=== PATIENT | female | born 1995 | race Caucasian/White ===

== ENCOUNTER 2017-08-14 23:55 | Emergency (ER) | payer OTHER ==
[2017-08-15] VITALS: TEMP 98.2
[2017-08-15 00:23] LABS: Appearance,Urine Clear (Clear); Bilirubin,Urine Negative (Negative); Blood,Urine Negative (Negative); Color,Urine Light Yellow; Glucose,Urine (UA) Negative (Negative); Ketones,Urine 1+ (Negative); Leukocyte Esterase,Urine Negative (Negative); Mucus,Urine Rare /hpf; Nitrite,Urine Negative (Negative); PH, Urine 7.5 (5.0-8.0); Protein,Urine Negative (Negative); RBC,Urine 1 /hpf (0-5); Specific Gravity,Urine 1.006 (1.001-1.035); Urobilinogen,Urine <2.0 mg/dL (<2.0); WBC,Urine 1 /hpf (0-5)
[2017-08-15 00:32] LABS: HCT 36.3 % (34.0-46.0); MCH 29.3 pg (25.0-35.0); MCV 88.9 fL (80.0-100.0); Mean Platelet Volume 6.8; Platelet Count 292 k/uL (150-450); RBC 4.09 m/uL (3.80-5.40); RDW 12.1 % (11.5-15.5); WBC 9.6 k/uL (4.0-11.0)
[2017-08-15 00:42] LABS: Anion Gap 9 mmol/L; Blood Urea Nitrogen 8 mg/dL (7-17); Calcium 9.6 mg/dL (8.4-10.2); Carbon Dioxide 23 mmol/L (22-30); Chloride 107 mmol/L (98-107); Glucose 95 mg/dL (74-99); Potassium 3.9 mmol/L (3.5-5.1); Sodium 139 mmol/L (137-145)
--- NOTE | 2017-08-15 00:53 | ED ---
Female Urogenital HPI - General Chief complaint: Vaginal Bleeding Stated complaint: vag bleeding Time Seen by Provider: 08/15/17 00:07 Source: patient, RN notes reviewed Mode of arrival: ambulatory Limitations: no limitations - History of Present Illness Initial comments: 22-year-old female presents emergency Department chief complaint of vaginal bleeding. Patient states that she's had some spotting for last 3 weeks and did not think much of it though she had an episode where she passed o'clock today. She states she did have some cramping right before this. She states 2:00 she was concerned and came the emergency department. Patient has had a prior miscarriage. Patient states she does not know she is or not she states that she may be she has not been taking . She does admit to some nausea and the morning and at night she seems stated reoccurs every time. She denies any abdominal pain this time. Denies diarrhea, constipation, dysuria or urinary frequency. Denies fever, chills. Last Menstrual Period: 07/23/17 - Related Data Home Medications Medication Instructions Recorded Confirmed No Known Home Medications [No 08/15/17 08/15/17 Known Home Medications] Allergies Allergy/AdvReac Type Severity Reaction Status Date / Time No Known Allergies Allergy Verified 08/15/17 00:01 Review of Systems ROS Statement: Those systems with pertinent positive or pertinent negative responses have been documented in the HPI. ROS Other: All systems not noted in ROS Statement are negative. Past Medical History Past Medical History: Asthma History of Any Multi-Drug Resistant Organisms: None Reported Past Surgical History: Hernia Repair Past Psychological History: Anxiety, Depression Smoking Status: Current every day smoker Past Alcohol Use History: None Reported Past Drug Use History: Marijuana General Exam Limitations: no limitations General appearance: alert, in no apparent distress Head exam: Present: atraumatic, normocephalic, normal inspection Respiratory exam: Present: normal lung sounds bilaterally. Absent: respiratory distress, wheezes, rales, rhonchi, stridor Cardiovascular Exam: Present: regular rate, normal rhythm, normal heart sounds. Absent: systolic murmur, diastolic murmur, rubs, gallop, clicks GI/Abdominal exam: Present: soft, normal bowel sounds. Absent: distended, tenderness, guarding, rebound, rigid Back exam: Absent: CVA tenderness (R), CVA tenderness (L) Skin exam: Present: warm, dry, intact, normal color. Absent: rash Course Vital Signs 08/14/17 23:58 Temperature 98.2 F Pulse Rate 112 H Respiratory 16 Rate Blood Pressure 119/60 O2 Sat by Pulse 99 Oximetry Medical Decision Making - Medical Decision Making 22-year-old female presented for vaginal spotting, potassium blood clot today. Patient was found to be positive on her test ultrasound shows conservative fluid collection and her hCG level is greater than 225,000. Dr. Reece Did discuss the case with on-call S[facility] REPAIRER doctor adry who believes this is most likely a molar . Patient will follow-up in office tomorrow for further treatment. - Lab Data Result diagrams: 08/15/17 00:21 08/15/17 00:21 Lab Results 08/15/17 08/15/17 08/15/17 Range/Units 00:05 00:05 00:21 WBC (4.0-11.0) k/uL RBC (3.80-5.40) m/uL Hgb (11.4-16.0) gm/dL Hct (34.0-46.0) % MCV (80.0-100.0) fL MCH (25.0-35.0) pg MCHC (31.0-37.0) g/dL RDW (11.5-15.5) % Plt Count (150-450) k/uL Neutrophils % (Manual) % Lymphocytes % (Manual) % Monocytes % (Manual) % Eosinophils % (Manual) % Neutrophils # (Manual) (1.3-7.7) k/uL Lymphocytes # (Manual) (1.0-4.8) k/uL Monocytes # (Manual) (0-1.0) k/uL Eosinophils # (Manual) (0-0.7) k/uL Nucleated RBCs (0-0) /100 WBC Manual Slide Review Sodium 139 (137-145) mmol/L Potassium 3.9 (3.5-5.1) mmol/L Chloride 107 (98-107) mmol/L Carbon Dioxide 23 (22-30) mmol/L Anion Gap 9 mmol/L BUN 8 (7-17) mg/dL Creatinine 0.50 L (0.52-1.04) mg/dL Est GFR (MDRD) Af Amer >60 (>60 ml/min/1.73 sqM) Est GFR (MDRD) Non-Af >60 (>60 ml/min/1.73 sqM) Glucose 95 (74-99) mg/dL Calcium 9.6 (8.4-10.2) mg/dL HCG, Quant mIU/mL Urine Color Light Yellow Urine Appearance Clear (Clear) Urine pH 7.5 (5.0-8.0) Ur Specific [place] 1.006 (1.001-1.035) Urine Protein Negative (Negative) Urine Glucose (UA) Negative (Negative) Urine Ketones 1+ H (Negative) Urine Blood Negative (Negative) Urine Nitrite Negative (Negative) Urine Bilirubin Negative (Negative) Urine Urobilinogen <2.0 (<2.0) mg/dL Ur Leukocyte Esterase Negative (Negative) Urine RBC 1 (0-5) /hpf Urine WBC 1 (0-5) /hpf Urine Mucus Rare H (None) /hpf Urine HCG, Qual Detected (Not Detectd) 08/15/17 08/15/17 Range/Units 00:21 00:21 WBC 9.6 (4.0-11.0) k/uL RBC 4.09 (3.80-5.40) m/uL Hgb 12.0 (11.4-16.0) gm/dL Hct 36.3 (34.0-46.0) % MCV 88.9 (80.0-100.0) fL MCH 29.3 (25.0-35.0) pg MCHC 33.0 (31.0-37.0) g/dL RDW 12.1 (11.5-15.5) % Plt Count 292 (150-450) k/uL Neutrophils % (Manual) 63 % Lymphocytes % (Manual) 27 % Monocytes % (Manual) 9 % Eosinophils % (Manual) 1 % Neutrophils # (Manual) 6.05 (1.3-7.7) k/uL Lymphocytes # (Manual) 2.59 (1.0-4.8) k/uL Monocytes # (Manual) 0.86 (0-1.0) k/uL Eosinophils # (Manual) 0.10 (0-0.7) k/uL Nucleated RBCs 0 (0-0) /100 WBC Manual Slide Review Performed Sodium (137-145) mmol/L Potassium (3.5-5.1) mmol/L Chloride (98-107) mmol/L Carbon Dioxide (22-30) mmol/L Anion Gap mmol/L BUN (7-17) mg/dL Creatinine (0.52-1.04) mg/dL Est GFR (MDRD) Af Amer (>60 ml/min/1.73 sqM) Est GFR (MDRD) Non-Af (>60 ml/min/1.73 sqM) Glucose (74-99) mg/dL Calcium (8.4-10.2) mg/dL HCG, Quant >324541.0 mIU/mL Urine Color Urine Appearance (Clear) Urine pH (5.0-8.0) Ur Specific [place] (1.001-1.035) Urine Protein (Negative) Urine Glucose (UA) (Negative) Urine Ketones (Negative) Urine Blood (Negative) Urine Nitrite (Negative) Urine Bilirubin (Negative) Urine Urobilinogen (<2.0) mg/dL Ur Leukocyte Esterase (Negative) Urine RBC (0-5) /hpf Urine WBC (0-5) /hpf Urine Mucus (None) /hpf Urine HCG, Qual (Not Detectd) Disposition Clinical Impression: Molar Disposition: HOME SELF-CARE Condition: Stable Instructions: Complete Hydatidiform Mole (ED) Additional Instructions: Call in the a.m. to schedule appointment with [facility] REPAIR[facility]. Please return to the Emergency Department if symptoms worsen or any other concerns. Referrals: None,Stated [Primary Care Provider] - 1-2 days Bianca Gilman DO [Doctor of Osteopathic Medicine] - 1-2 days Time of Disposition: 02:54
[2017-08-15 01:05] LABS: Lymphocytes # (M) 2.59 k/uL (1.0-4.8); Monocytes # (M) 0.86 k/uL (0-1.0); Neutrophils # (M) 6.05 k/uL (1.3-7.7); Neutrophils % (M) 63 %; Nucleated Red Blood Cells 0 /100 WBC (0-0); Total Cells Counted 100
--- NOTE | 2017-08-15 01:27 | US ---
EXAMINATION TYPE: US OB <=14 wks transvag DATE OF EXAM: 08/15/2017 COMPARISON: NONE CLINICAL HISTORY: Pain. Bleeding EXAM PERFORMED: Transvaginal (TV) and Transabdominal (TA) EXAM MEASUREMENTS: GESTATIONAL AGE / DATING Physician Established: Not yet established Dates by LMP: LMP unknown Dates by First Scan: (8 weeks/4 days) Dates by Current Scan for: Unable to date by today's study MATERNAL ANATOMY Uterus: 9.9 x 6.1 x 8.0 Right Ovary: 2.8 x 1.6 x 1.9 cm Post CDS / Adnexa: wnl Presence of free fluid: no Presence of corpus luteal cyst: no GESTATION / SURVEY CRL: Not seen MSD: Not seen IUP: No IUP seen at this time Beta HcG (if available): Not available at this time Complex heterogenous area seen with small amount of color flow in uterus question thickened endometri um 4.6cm vs mass measuring 7.7 x 5.2 x 6.2cm. IMPRESSION: There is heterogeneous enlargement of the endometrial cavity. There is complex fluid. This measures 3 .5 x 5.5 cm. There is no evidence of a gestational sac. The appearance is nonspecific. I would consid er both benign and neoplastic etiology. This could relate to endometrial hemorrhage. Follow-up is rec ommended. No adnexal mass.
[2017-08-15 03:06] VITALS: BP 102/51; PULSE 89; RESP 18
== END 2017-08-15 03:06 | disposition home or self-care (01) ==
LOC: EC 23:55
DX: O02.0 Blighted ovum and nonhydatidiform mole (principal); O99.330 Smoking (tobacco) complicating pregnancy, unspecified trimester; F17.200 Nicotine dependence, unspecified, uncomplicated; Z3A.00 Weeks of gestation of pregnancy not specified
CPT/HCPCS: 36415; 76801; 76817; 80048; 81003; 81025; 84702; 85025; 99284

== ENCOUNTER 2017-08-18 14:45 | Day surgery (SDC) | payer OTHER ==
[~2017-08-18 14:45] MED LIST: Pre Op ABX Message 1 EACH MISC MISCELLANE ONE
--- NOTE | 2017-08-18 15:08 | XR ---
EXAMINATION TYPE: XR chest 2V DATE OF EXAM: 08/18/2017 COMPARISON: NONE HISTORY: Preoperative evaluation. Molar . TECHNIQUE: Frontal and lateral views of the chest are obtained. FINDINGS: There is no focal air space opacity, pleural effusion, or pneumothorax seen. The cardiac silhouette size is within normal limits. The osseous structures are intact. IMPRESSION: No acute cardiopulmonary process.
[2017-08-18] MEDS ORDERED: LACTATED RINGERS 1,000 ML IV ONE (15:31)
[2017-08-18] MEDS ORDERED: LIDOCAINE 1% 20 ML VIAL (10MG/ML) FOR IV START INTRADERMA ONE (15:35)
[2017-08-18] MEDS ORDERED: ONDANSETRON 4 MG/2 ML VIAL IVP ONE ×2 (15:35→17:10)
[2017-08-18] MEDS ORDERED: DEXAMETHASONE SOD PHOSPHATE 10 MG/ML 1 ML VIAL IV ONE (15:35)
[2017-08-18] MEDS ORDERED: SUCCINYLCHOLINE CHLORIDE 100 MG/5 ML SYR IV ONE (16:31)
[2017-08-18] MEDS ORDERED: METHYLERGONOVINE 0.2 MG/ML 1 ML AMP ONE (16:31)
[2017-08-18] MEDS ORDERED: PROPOFOL 10 MG/ML 20 ML VIAL IV ONE (16:31)
[2017-08-18] MEDS ORDERED: LIDOCAINE 1% INJ 10MG/ML (20 ML MDV) ONE (16:31)
[2017-08-18] MEDS ORDERED: MIDAZOLAM 2 MG/2 ML VIAL ONE (16:31)
[2017-08-18] MEDS ORDERED: IBUPROFEN 600 MG TAB PO PRN (17:04)
[2017-08-18] MEDS ORDERED: Acetaminophen-Codeine 300-30mg TAB PO PRN (17:04)
[2017-08-18] MEDS ORDERED: KETOROLAC 30 MG/ML 1 ML VIAL IVP ONE (17:10)
--- NOTE | 2017-08-18 17:10 | P.OP ---
Date of Procedure: 08/18/17 Preoperative Diagnosis: Molar Postoperative Diagnosis: Same Procedure(s) Performed: Suction dilation and curettage Anesthesia: BETO Surgeon: Bianca Gilman Estimated Blood Loss (ml): 200 IV fluids (ml): 400 Urine output (ml): 25 Pathology: other (Uterine contents) Condition: stable Disposition: PACU Indications for Procedure: Known molar Operative Findings: Enlarged globular uterus, large amount of uterine contents Description of Procedure: Patient was taken to the operating room where general anesthesia was obtained without difficulty by the anesthesia department. She was prepped and draped in the normal sterile fashion in the dorsal lithotomy position. A red rubber catheter was used to drain the bladder of clear yellow urine. A weighted speculum was placed in the posterior vaginal vault interval of the cervix was visualized and grasped a single-tooth tenaculum. The uterus was noted to be enlarged and globular in nature. The endocervical canal was then dilated to 18- [place], and an 8 curved suction curette was laced through the cervix and toward the uterine cavity. The uterus was cleared of products of conception, uterine contents. Afterwards a gentle curettage was performed and the uterus appeared empty based on exam. The suction curette was then passed one further time to ensure no further contents remained. Afterwards the single-tooth tenaculum was taken off of the anterior lip of the cervix hemostasis was appreciated. All instruments were removed from the patient's vaginal vault. All counts were correct 2 and patient tolerated procedure well, and was taken to the recovery room awake and in stable condition
[2017-08-18] MEDS ORDERED: HYDROmorphone 1 MG/ML 1 ML SYRINGE IVP ONE ×4 (17:15→17:46)
[2017-08-18 17:18] VITALS: TEMP 97.3
[2017-08-18 17:24] VITALS: RESP 16
[2017-08-18] MEDS ORDERED: METOCLOPRAMIDE 5 MG/ML 2 ML VIAL IVP ONE (17:32)
[2017-08-18 18:43] VITALS: BP 118/59; PULSE 73
== END 2017-08-18 16:30 | disposition home or self-care (01) ==
LOC: OR 14:45
PROVIDERS: ATTEND Obstetrics & Gynecology Obstetrics
DX: O02.0 Blighted ovum and nonhydatidiform mole (principal); I10 Essential (primary) hypertension; F17.200 Nicotine dependence, unspecified, uncomplicated; Z87.440 Personal history of urinary (tract) infections; K21.9 Gastro-esophageal reflux disease without esophagitis
CPT/HCPCS: 59820; J2250; J1100; J2210; J2765; J2405; J2001; J1885; J1170; J0330; J2704; 71046; 88305

== ENCOUNTER → 2017-08-18 | Day surgery (SDC) | payer OTHER ==
[2017-08-18 15:08] LABS: HCT 36.6 % (34.0-46.0); HGB 12.2 gm/dL (11.4-16.0); MCH 29.3 pg (25.0-35.0); MCHC 33.3 g/dL (31.0-37.0); MCV 88.2 fL (80.0-100.0); Mean Platelet Volume 7.4; Platelet Count 292 k/uL (150-450); RBC 4.15 m/uL (3.80-5.40); WBC 7.1 k/uL (4.0-11.0)
[2017-08-18 15:40] LABS: T4, Free (Free Thyroxine) 0.94 ng/dL (0.78-2.19)
== END ==
LOC: RADXRMAIN 14:20 → OR 15:01
PROVIDERS: ATTEND Obstetrics & Gynecology Obstetrics
DX: O01.9 Hydatidiform mole, unspecified (principal)
CPT/HCPCS: 36415; 71046; 84439; 84443; 85027

== ENCOUNTER 2017-12-17 18:06 | Emergency (ER) | payer OTHER ==
[2017-12-17 20:58] LABS: Appearance,Urine Cloudy (Clear); Bacteria,Urine Rare /hpf; Bilirubin,Urine Negative (Negative); Blood,Urine Negative (Negative); Color,Urine Yellow; Glucose,Urine (UA) Negative (Negative); Ketones,Urine 1+ (Negative); Leukocyte Esterase,Urine Trace (Negative); Mucus,Urine Occasional /hpf; Nitrite,Urine Negative (Negative); PH, Urine 5.5 (5.0-8.0); Protein,Urine Trace (Negative); RBC,Urine 2 /hpf (0-5); Specific Gravity,Urine 1.021 (1.001-1.035); Squamous Epithelial Cell,Urine 16 /hpf (0-4); Urobilinogen,Urine <2.0 mg/dL (<2.0); WBC,Urine 7 /hpf (0-5)
[2017-12-17] MEDS ORDERED: PHENAZOPYRIDINE 200 MG TAB PO STA ×2 (21:00→22:00)
[2017-12-17] MEDS ORDERED: SODIUM CHLORIDE 0.9% 1,000 ML IV ONE (21:00)
--- NOTE | 2017-12-17 21:04 | ED ---
Abdominal Pain HPI - General Chief Complaint: Abdominal Pain Stated Complaint: BLADDER PROBLEM Time Seen by Provider: 12/17/17 20:38 Source: patient Mode of arrival: ambulatory Limitations: no limitations - History of Present Illness Initial Comments: 22-year-old female patient presents to the emergency department today for complaints of dysuria and suprapubic pressure. Patient states that she has had these symptoms since Friday. She is reporting an intense burning in her genital region with or without urination. Patient states that she has been urinating frequently. Patient states she believes she has a urinary tract infection. The patient denies any fevers or chills with this. Denies any nausea or vomiting. Denies any back pain. She is uncertain if she is . She denies any abnormal vaginal bleeding or discharge. Patient denies any recent rash, shortness breath, chest pain, diarrhea, constipation, back pain, numbness , tingling, dizziness, weakness, headache, visual changes, or any other complaints. - Related Data Home Medications Medication Instructions Recorded Confirmed Azo Uti 1 tab PO TID PRN 12/17/17 Ibuprofen [Motrin Ib] 400 mg PO Q6H PRN 12/17/17 12/17/17 Methenamine/Sodium Salicylate 1 tab PO TID PRN 12/17/17 12/17/17 [Cystex Tablet] Previous Rx's Medication Instructions Recorded Phenazopyridine [Pyridium] 100 mg PO TID #9 tablet 12/17/17 Sulfamethoxazole/Trimethoprim 1 each PO BID #14 tablet 12/17/17 [Bactrim DS 800-160 mg] Allergies Allergy/AdvReac Type Severity Reaction Status Date / Time No Known Allergies Allergy Verified 12/17/17 20:25 Review of Systems ROS Statement: Those systems with pertinent positive or pertinent negative responses have been documented in the HPI. ROS Other: All systems not noted in ROS Statement are negative. Past Medical History Past Medical History: Asthma History of Any Multi-Drug Resistant Organisms: None Reported Past Surgical History: Hernia Repair, Tubal Ligation Additional Past Surgical History / Comment(s): Ectopic , D&C, Past Psychological History: Anxiety, Depression Smoking Status: Current every day smoker Past Alcohol Use History: None Reported Past Drug Use History: Marijuana General Exam Limitations: no limitations General appearance: alert, in no apparent distress, other (This is a well- developed, well-nourished adult female patient in no acute distress. Vital signs upon presentation are temperature 100.2F, pulse 92, respirations 18, blood pressure 124/73, pulse ox 98% on room air.) Eye exam: Present: normal appearance, PERRL, EOMI. Absent: scleral icterus, conjunctival injection, periorbital swelling ENT exam: Present: normal exam, normal oropharynx, mucous membranes moist Respiratory exam: Present: normal lung sounds bilaterally. Absent: respiratory distress, wheezes, rales, rhonchi, stridor Cardiovascular Exam: Present: regular rate, normal rhythm, normal heart sounds. Absent: systolic murmur, diastolic murmur, rubs, gallop, clicks GI/Abdominal exam: Present: soft, tenderness (Mild suprapubic discomfort with palpation), normal bowel sounds. Absent: distended, guarding, rebound, rigid External exam: Present: normal external exam Speculum exam: Present: normal speculum exam, vaginal discharge (white, physiologic) By manual exam: Present: normal by manual exam. Absent: cervical motion tenderness, adnexal tenderness, uterine tenderness Back exam: Present: normal inspection. Absent: CVA tenderness (R), CVA tenderness (L) Neurological exam: Present: alert, oriented X3, CN II-XII intact Psychiatric exam: Present: normal affect, normal mood Skin exam: Present: warm, dry, intact, normal color. Absent: rash Course Vital Signs 12/17/17 12/17/17 12/17/17 18:24 20:40 22:00 Temperature 100.0 F H 98.3 F 98.1 F Pulse Rate 92 110 H 98 Respiratory 18 18 16 Rate Blood Pressure 124/73 115/65 112/72 O2 Sat by Pulse 98 98 98 Oximetry Medical Decision Making - Medical Decision Making 22-year-old female patient presents to the emergency department today with complaints of suprapubic pressure and dysuria. Physical examination was relatively unremarkable. No CVA tenderness. Did perform pelvic examination which was normal, no abnormal discharge, no cervical motion or adnexal tenderness. Urinalysis was reviewed and did show cloudy appearance with trace protein, 1+ ketone, trace leukocyte esterase, 7 white blood cells, 16 squamous epithelial cells, rare bacteria, and occasional mucous. This has been sent for culture. We'll treat patient as he urinary tract infection as she does have the appropriate symptoms with a negative pelvic examination. Cultures from the pelvic have been sent. We'll give patient Pyridium and did discuss increase in fluids. She is instructed to follow-up with her primary care physician as well as her [facility] for recheck as soon as possible. Return parameters discussed in detail. She verbalizes understanding and agrees with this plan. - Lab Data Lab Results 12/17/17 12/17/17 Range/Units 20:43 20:43 Urine Color Yellow Urine Appearance Cloudy H (Clear) Urine pH 5.5 (5.0-8.0) Ur Specific [place] 1.021 (1.001-1.035) Urine Protein Trace H (Negative) Urine Glucose (UA) Negative (Negative) Urine Ketones 1+ H (Negative) Urine Blood Negative (Negative) Urine Nitrite Negative (Negative) Urine Bilirubin Negative (Negative) Urine Urobilinogen <2.0 (<2.0) mg/dL Ur Leukocyte Esterase Trace H (Negative) Urine RBC 2 (0-5) /hpf Urine WBC 7 H (0-5) /hpf Ur Squamous Epith Cells 16 H (0-4) /hpf Urine Bacteria Rare H (None) /hpf Urine Mucus Occasional H (None) /hpf Urine HCG, Qual Not Detected (Not Detectd) Disposition Clinical Impression: Urinary tract infection, Dysuria Disposition: HOME SELF-CARE Condition: Good Instructions: Urinary Tract Infection in Women (ED), Dysuria (ED) Additional Instructions: Increase fluids, especially water. Follow-up with your primary care physician and your [facility] OPERATOR for further evaluation. Return here immediately for any new, worsening, or concerning symptoms. Prescriptions: Phenazopyridine [Pyridium] 100 mg PO TID #9 tablet Sulfamethoxazole/Trimethoprim [Bactrim DS 800-160 mg] 1 each PO BID #14 tablet Is patient prescribed a controlled substance at d/c from ED?: No Referrals: Bianca Gilman DO [Primary Care Provider] - 1-2 days Time of Disposition: 22:02
[2017-12-17] MEDS ORDERED: KETOROLAC 30 MG/ML 1 ML VIAL IVP STA (22:00)
[2017-12-17 22:01] VITALS: BP 112/72; PULSE 98; RESP 16; TEMP 98.1
[2017-12-17] MEDS ORDERED: SULFAMETHOX-TMP 800-160MG 1 EACH TAB PO STA (22:04)
[2017-12-19 14:55] LABS: C. trachomatis,PCR Negative (Neg,Equiv); Chlamydia trachomatis Source Cervix
[2017-12-19 14:59] LABS: N. gonorrhoeae,PCR Negative (Neg,Equiv); Neisseria Source Cervix
== END 2017-12-17 23:00 | disposition home or self-care (01) ==
LOC: EC 18:06
DX: N39.0 Urinary tract infection, site not specified (principal); N89.8 Other specified noninflammatory disorders of vagina; F17.200 Nicotine dependence, unspecified, uncomplicated
CPT/HCPCS: 81001; 81025; 87808; 87491; 87591; 87070; 87086; 99284; 96374; 96361; J1885; 87205

== ENCOUNTER 2018-01-12 15:04 | Emergency (ER) | payer OTHER ==
[2018-01-12] MEDS ORDERED: ONDANSETRON 4 MG/2 ML VIAL IVP STA (15:37)
[2018-01-12] MEDS ORDERED: KETOROLAC 30 MG/ML 1 ML VIAL IVP STA (15:37)
[2018-01-12] MEDS ORDERED: SODIUM CHLORIDE 0.9% 1,000 ML IV STA ×2 (15:37)
[2018-01-12] MEDS ORDERED: FAMOTIDINE 20 MG/2 ML VIAL IV STA (15:38)
--- NOTE | 2018-01-12 15:41 | ED ---
Abdominal Pain HPI - General Chief Complaint: Abdominal Pain Stated Complaint: abdominal pain Time Seen by Provider: 01/12/18 15:33 Source: patient Mode of arrival: ambulatory Limitations: no limitations - History of Present Illness Initial Comments: This 22-year-old female presents with a complaint of some abdominal pain nausea and vomiting. She describes the abdominal pain is diffuse in nature. She states that she will vomit and have dry heaves approximately 6 times per day. Her symptoms have been present for the last 3 days. She denies any fever or diarrhea. There are no urinary symptoms. She does not think that she is . She denies any infectious exposures. No other complaints or modifying factors. - Related Data Home Medications Medication Instructions Recorded Confirmed Ibuprofen [Motrin Ib] 400 mg PO Q6H PRN 12/17/17 01/12/18 Previous Rx's Medication Instructions Recorded Dicyclomine [Bentyl] 20 mg PO QID PRN #20 tablet 01/12/18 Famotidine [Pepcid] 20 mg PO BID #20 tablet 01/12/18 Ondansetron [Zofran ODT] 8 mg PO Q8HR PRN #12 tab 01/12/18 Allergies Allergy/AdvReac Type Severity Reaction Status Date / Time No Known Allergies Allergy Verified 01/12/18 15:54 Review of Systems ROS Statement: Those systems with pertinent positive or pertinent negative responses have been documented in the HPI. ROS Other: All systems not noted in ROS Statement are negative. Past Medical History Past Medical History: Asthma History of Any Multi-Drug Resistant Organisms: None Reported Past Surgical History: Hernia Repair, Tubal Ligation Additional Past Surgical History / Comment(s): Ectopic , D&C, Past Psychological History: Anxiety, Depression Smoking Status: Current every day smoker Past Alcohol Use History: None Reported Past Drug Use History: Marijuana General Exam - General Exam Comments Initial Comments: GENERAL: The patient is well nourished and well hydrated. VITAL SIGNS: Heart rate, blood pressure, respiratory rate reviewed as recorded in nurse's notes. EYES: Pupils are round and reactive. Extraocular movements are intact. No conjunctival / lid redness or swelling. ENT: No external evidence of injury, swelling, or ecchymosis. Airway is patent. Throat is clear. NECK: Nontender. No swelling or evidence of injury. No subcutaneous emphysema. Trachea is midline. No thyroid mass. HEART: Regular rate and rhythm. Good peripheral pulses. LUNGS/CHEST: Breath sounds clear and equal bilaterally. No rales, rhonchi, or wheezes. No ecchymosis, subcutaneous emphysema, or tenderness. ABDOMEN: There is mild diffuse abdominal tenderness. No palpable masses or organomegaly. No peritoneal signs. No abdominal wall swelling or ecchymosis. EXTREMITIES: No extremity tenderness. Normal muscle tone and function. No thoracolumbar tenderness. NEUROLOGIC: Sensation is grossly intact. Cranial nerve exam reveals face is symmetrical, tongue is midline, speech is clear. SKIN: No abrasions or ecchymosis is noted. No induration or masses noted. PSYCHIATRIC: Alert and oriented. Appropriate behavior and judgment. Limitations: no limitations Course Vital Signs 01/12/18 15:27 Temperature 98.0 F Pulse Rate 72 Respiratory 18 Rate Blood Pressure 117/72 O2 Sat by Pulse 98 Oximetry Medical Decision Making - Medical Decision Making The patient is seen and examined. An IV is started and she is hydrated. She also receives some IV Zofran and Toradol and Pepcid. She did have an x-ray of the abdomen done which does not show any acute processes. The laboratories unremarkable. She is feeling remarkably improved on recheck. Is felt as though she likely could have a viral gastritis. It is felt as though she stable for discharge and leaves in no identifiable distress. - Lab Data Result diagrams: 01/12/18 15:53 01/12/18 15:53 Lab Results 01/12/18 01/12/18 01/12/18 Range/Units 15:53 15:53 15:57 WBC 3.4 L (4.0-11.0) k/uL RBC 4.37 (3.80-5.40) m/uL Hgb 12.7 (11.4-16.0) gm/dL Hct 38.1 (34.0-46.0) % MCV 87.3 (80.0-100.0) fL MCH 29.1 (25.0-35.0) pg MCHC 33.3 (31.0-37.0) g/dL RDW 13.7 (11.5-15.5) % Plt Count 282 (150-450) k/uL Neutrophils % (Manual) 27 % Band Neutrophils % 4 % Lymphocytes % (Manual) 48 % Monocytes % (Manual) 20 % Eosinophils % (Manual) 1 % Neutrophils # (Manual) 1.00 L (1.3-7.7) k/uL Lymphocytes # (Manual) 1.63 (1.0-4.8) k/uL Monocytes # (Manual) 0.68 (0-1.0) k/uL Eosinophils # (Manual) 0.03 (0-0.7) k/uL Nucleated RBCs 0 (0-0) /100 WBC Manual Slide Review Performed RBC Morphology Normal Sodium 143 (137-145) mmol/L Potassium 3.7 (3.5-5.1) mmol/L Chloride 105 (98-107) mmol/L Carbon Dioxide 26 (22-30) mmol/L Anion Gap 12 mmol/L BUN 15 (7-17) mg/dL Creatinine 0.71 (0.52-1.04) mg/dL Est GFR (CKD-EPI)AfAm >90 (>60 ml/min/1.73 sqM) Est GFR (CKD-EPI)NonAf >90 (>60 ml/min/1.73 sqM) Glucose 106 H (74-99) mg/dL Calcium 9.0 (8.4-10.2) mg/dL Total Bilirubin 0.2 (0.2-1.3) mg/dL AST 17 (14-36) U/L ALT 23 (9-52) U/L Alkaline Phosphatase 67 (38-126) U/L Total Protein 6.4 (6.3-8.2) g/dL Albumin 3.9 (3.5-5.0) g/dL Amylase 64 (30-110) U/L Lipase 106 (23-300) U/L Urine Color Urine Appearance (Clear) Urine pH (5.0-8.0) Ur Specific [place] (1.001-1.035) Urine Protein (Negative) Urine Glucose (UA) (Negative) Urine Ketones (Negative) Urine Blood (Negative) Urine Nitrite (Negative) Urine Bilirubin (Negative) Urine Urobilinogen (<2.0) mg/dL Ur Leukocyte Esterase (Negative) Urine HCG, Qual Not Detected (Not Detectd) 01/12/18 Range/Units 15:57 WBC (4.0-11.0) k/uL RBC (3.80-5.40) m/uL Hgb (11.4-16.0) gm/dL Hct (34.0-46.0) % MCV (80.0-100.0) fL MCH (25.0-35.0) pg MCHC (31.0-37.0) g/dL RDW (11.5-15.5) % Plt Count (150-450) k/uL Neutrophils % (Manual) % Band Neutrophils % % Lymphocytes % (Manual) % Monocytes % (Manual) % Eosinophils % (Manual) % Neutrophils # (Manual) (1.3-7.7) k/uL Lymphocytes # (Manual) (1.0-4.8) k/uL Monocytes # (Manual) (0-1.0) k/uL Eosinophils # (Manual) (0-0.7) k/uL Nucleated RBCs (0-0) /100 WBC Manual Slide Review RBC Morphology Sodium (137-145) mmol/L Potassium (3.5-5.1) mmol/L Chloride (98-107) mmol/L Carbon Dioxide (22-30) mmol/L Anion Gap mmol/L BUN (7-17) mg/dL Creatinine (0.52-1.04) mg/dL Est GFR (CKD-EPI)AfAm (>60 ml/min/1.73 sqM) Est GFR (CKD-EPI)NonAf (>60 ml/min/1.73 sqM) Glucose (74-99) mg/dL Calcium (8.4-10.2) mg/dL Total Bilirubin (0.2-1.3) mg/dL AST (14-36) U/L ALT (9-52) U/L Alkaline Phosphatase (38-126) U/L Total Protein (6.3-8.2) g/dL Albumin (3.5-5.0) g/dL Amylase (30-110) U/L Lipase (23-300) U/L Urine Color Yellow Urine Appearance Clear (Clear) Urine pH 6.5 (5.0-8.0) Ur Specific [place] 1.029 (1.001-1.035) Urine Protein Trace H (Negative) Urine Glucose (UA) Negative (Negative) Urine Ketones Trace H (Negative) Urine Blood Negative (Negative) Urine Nitrite Negative (Negative) Urine Bilirubin Negative (Negative) Urine Urobilinogen 2.0 (<2.0) mg/dL Ur Leukocyte Esterase Negative (Negative) Urine HCG, Qual (Not Detectd) Disposition Clinical Impression: Abdominal pain, Nausea and vomiting, Viral gastritis Disposition: HOME SELF-CARE Condition: Good Instructions: Acute Nausea and Vomiting (ED), Abdominal Pain (ED) Prescriptions: Dicyclomine [Bentyl] 20 mg PO QID PRN #20 tablet PRN Reason: Pain Famotidine [Pepcid] 20 mg PO BID #20 tablet Ondansetron [Zofran ODT] 8 mg PO Q8HR PRN #12 tab PRN Reason: Nausea Is patient prescribed a controlled substance at d/c from ED?: No Referrals: None,Stated [Primary Care Provider] - 1-2 days Time of Disposition: 17:37
[2018-01-12 16:12] LABS: ALT 23 U/L (9-52); AST 17 U/L (14-36); Albumin 3.9 g/dL (3.5-5.0); Alkaline Phosphatase 67 U/L (38-126); Amylase 64 U/L (30-110); Anion Gap 12 mmol/L; Blood Urea Nitrogen 15 mg/dL (7-17); Carbon Dioxide 26 mmol/L (22-30); Chloride 105 mmol/L (98-107); Glucose 106 mg/dL (74-99); Lipase 106 U/L (23-300); Potassium 3.7 mmol/L (3.5-5.1); Sodium 143 mmol/L (137-145); Total Bilirubin 0.2 mg/dL (0.2-1.3); Total Protein 6.4 g/dL (6.3-8.2)
[2018-01-12 16:18] LABS: Appearance,Urine Clear (Clear); Bilirubin,Urine Negative (Negative); Blood,Urine Negative (Negative); Color,Urine Yellow; Glucose,Urine (UA) Negative (Negative); Ketones,Urine Trace (Negative); Leukocyte Esterase,Urine Negative (Negative); Nitrite,Urine Negative (Negative); PH, Urine 6.5 (5.0-8.0); Protein,Urine Trace (Negative); Specific Gravity,Urine 1.029 (1.001-1.035)
[2018-01-12 16:23] LABS: HCT 38.1 % (34.0-46.0); HGB 12.7 gm/dL (11.4-16.0); MCH 29.1 pg (25.0-35.0); MCHC 33.3 g/dL (31.0-37.0); MCV 87.3 fL (80.0-100.0); Mean Platelet Volume 6.8; Platelet Count 282 k/uL (150-450); RBC 4.37 m/uL (3.80-5.40); RDW 13.7 % (11.5-15.5); WBC 3.4 k/uL (4.0-11.0)
[2018-01-12 16:40] LABS: Band Neutrophils % 4 %; Eosinophils # (M) 0.03 k/uL (0-0.7); Lymphocytes # (M) 1.63 k/uL (1.0-4.8); Monocytes # (M) 0.68 k/uL (0-1.0); Neutrophils % (M) 27 %; Nucleated Red Blood Cells 0 /100 WBC (0-0); Total Cells Counted 100
--- NOTE | 2018-01-12 17:32 | XR ---
EXAMINATION TYPE: XR abdomen acute w cxr, 3 views DATE OF EXAM: 01/12/2018 COMPARISON: NONE HISTORY: Abdominal pain and nausea. History of hernia repair and asthma. TECHNIQUE: Upright chest x-ray, upright abdominal and supine abdominal pelvic radiographs obtained. FINDINGS: The lungs are clear and the pleural spaces are negative. The cardiomediastinal silhouette and bones a nd soft tissues are unremarkable. There is no evidence for pneumoperitoneum. The bowel gas pattern is unremarkable as there is air thro ughout nondilated small and large bowel. No sizeable air fluid levels. No mass effects are seen. No unusual calcifications. IMPRESSION: No acute radiographic process.
[2018-01-12 18:14] VITALS: BP 120/71; PULSE 85; RESP 16; TEMP 98.1
== END 2018-01-12 18:14 | disposition home or self-care (01) ==
LOC: EC 15:04
DX: A08.4 Viral intestinal infection, unspecified (principal); F17.200 Nicotine dependence, unspecified, uncomplicated
CPT/HCPCS: 99284; 96374; 96375 ×2; 96361 ×2; 36415; 80053; 82150; 83690; 85025; 81003; 81025; 74022; J2405; J1885

== ENCOUNTER 2018-01-23 02:03 | Emergency (ER) | payer OTHER ==
[2018-01-23 02:10] VITALS: BP 120/74; PULSE 118; RESP 24; TEMP 98.5
[2018-01-23 02:37] LABS: Appearance,Urine Clear (Clear); Bilirubin,Urine Negative (Negative); Blood,Urine Negative (Negative); Color,Urine Colorless; Glucose,Urine (UA) Negative (Negative); Ketones,Urine Negative (Negative); Leukocyte Esterase,Urine Trace (Negative); Nitrite,Urine Negative (Negative); Protein,Urine Negative (Negative); Specific Gravity,Urine 1.001 (1.001-1.035); Squamous Epithelial Cell,Urine <1 /hpf (0-4); Urobilinogen,Urine <2.0 mg/dL (<2.0); WBC,Urine <1 /hpf (0-5)
--- NOTE | 2018-01-23 02:46 | ED ---
Female Urogenital HPI - General Chief complaint: Urogenital Stated complaint: UTI Time Seen by Provider: 01/23/18 02:08 Source: patient, RN notes reviewed, old records reviewed Mode of arrival: ambulatory Limitations: no limitations - History of Present Illness Initial comments: This is a 22 year old female with CC of suprapubic pain, dysuria, and polyuria. Patient reports she has symptoms of UTI, and feels similiar to previous. She has been drinking alot of water today. She denies vaginal discharge, fevers, or back pain. - Related Data Home Medications Medication Instructions Recorded Confirmed Ibuprofen [Motrin Ib] 400 mg PO Q6H PRN 12/17/17 01/12/18 Previous Rx's Medication Instructions Recorded Dicyclomine [Bentyl] 20 mg PO QID PRN #20 tablet 01/12/18 Famotidine [Pepcid] 20 mg PO BID #20 tablet 01/12/18 Ondansetron [Zofran ODT] 8 mg PO Q8HR PRN #12 tab 01/12/18 Nitrofurantoin Monohyd/M-Cryst 100 mg PO Q12HR #14 cap 01/23/18 [Macrobid] Phenazopyridine [Pyridium] 100 mg PO TID #12 tablet 01/23/18 Allergies Allergy/AdvReac Type Severity Reaction Status Date / Time No Known Allergies Allergy Verified 01/23/18 02:10 Review of Systems ROS Statement: Those systems with pertinent positive or pertinent negative responses have been documented in the HPI. ROS Other: All systems not noted in ROS Statement are negative. Past Medical History Past Medical History: Asthma History of Any Multi-Drug Resistant Organisms: None Reported Past Surgical History: Hernia Repair, Tubal Ligation Additional Past Surgical History / Comment(s): Ectopic , D&C, Past Psychological History: Anxiety, Depression Smoking Status: Current every day smoker Past Alcohol Use History: None Reported Past Drug Use History: Marijuana General Exam - General Exam Comments Initial Comments: This is 22 year old female, no distress. Limitations: no limitations General appearance: alert, in no apparent distress Head exam: Present: atraumatic, normocephalic, normal inspection Eye exam: Present: normal appearance, PERRL, EOMI. Absent: scleral icterus, conjunctival injection, periorbital swelling ENT exam: Present: normal exam, mucous membranes moist Neck exam: Present: normal inspection. Absent: tenderness, meningismus, lymphadenopathy Respiratory exam: Present: normal lung sounds bilaterally. Absent: respiratory distress, wheezes, rales, rhonchi, stridor Cardiovascular Exam: Present: regular rate, normal rhythm, normal heart sounds. Absent: systolic murmur, diastolic murmur, rubs, gallop, clicks GI/Abdominal exam: Present: soft, tenderness (Suprapubic.), normal bowel sounds. Absent: distended, guarding, rebound, rigid Extremities exam: Present: normal inspection, full ROM, normal capillary refill. Absent: tenderness, pedal edema, joint swelling, calf tenderness Back exam: Present: normal inspection Neurological exam: Present: alert, oriented X3, CN II-XII intact Psychiatric exam: Present: normal affect, normal mood Course Vital Signs 01/23/18 02:06 Temperature 98.5 F Pulse Rate 118 H Respiratory 24 Rate Blood Pressure 120/74 O2 Sat by Pulse 97 Oximetry Medical Decision Making - Medical Decision Making This is a 22 year old female with CC of dysuria and polyuria for 2 days, consistent with previous UTI. She had recent pelvic in ED, I viewed cultures and those are negative for Chlamydia and gonorrhea, she denies pelvic pain or discharge at this time and refuses Pelvic exam. UA is quite diluted due to drinking plenty of water. Discussed urine culture will be obtained, but patient history and physical is consistent with UTI. Will start on antibiotics and advised for follow up and to follow up with culture results. Patient agrees to treatment plan and will comply. - Lab Data Lab Results 01/23/18 01/23/18 Range/Units 02:10 02:10 Urine Color Colorless Urine Appearance Clear (Clear) Urine pH 6.0 (5.0-8.0) Ur Specific [place] 1.001 (1.001-1.035) Urine Protein Negative (Negative) Urine Glucose (UA) Negative (Negative) Urine Ketones Negative (Negative) Urine Blood Negative (Negative) Urine Nitrite Negative (Negative) Urine Bilirubin Negative (Negative) Urine Urobilinogen <2.0 (<2.0) mg/dL Ur Leukocyte Esterase Trace H (Negative) Urine WBC <1 (0-5) /hpf Ur Squamous Epith Cells <1 (0-4) /hpf Urine HCG, Qual Not Detected (Not Detectd) Disposition Clinical Impression: UTI (urinary tract infection) Disposition: HOME SELF-CARE Condition: Good Instructions: Urinary Tract Infection in Women (ED) Additional Instructions: Patient advised follow-up with primary care provider. Return to emergency department if any alarming signs or symptoms occur. Prescriptions: Nitrofurantoin Monohyd/M-Cryst [Macrobid] 100 mg PO Q12HR #14 cap Phenazopyridine [Pyridium] 100 mg PO TID #12 tablet Is patient prescribed a controlled substance at d/c from ED?: No When asked, does pt state using other controlled substances?: No If prescribed controlled substance>3 days was MAPS reviewed?: No If opioid is for acute pain is fill amount 7 days or less?: No If Rx opioid, was Start Talking consent form obtained?: No Referrals: None,Stated [Primary Care Provider] - 1-2 days Time of Disposition: 02:43
== END 2018-01-23 02:59 | disposition home or self-care (01) ==
LOC: EC 02:03
DX: N39.0 Urinary tract infection, site not specified (principal); F17.200 Nicotine dependence, unspecified, uncomplicated
CPT/HCPCS: 81001; 81025; 87077; 87086; 87186; 99284

== ENCOUNTER 2018-02-16 23:39 | Emergency (ER) | payer OTHER ==
[2018-02-17 00:30] LABS: Appearance,Urine Clear (Clear); Bilirubin,Urine Negative (Negative); Blood,Urine Negative (Negative); Color,Urine Colorless; Glucose,Urine (UA) Negative (Negative); Ketones,Urine Negative (Negative); Leukocyte Esterase,Urine Moderate (Negative); Nitrite,Urine Negative (Negative); Protein,Urine Negative (Negative); RBC,Urine <1 /hpf (0-5); Specific Gravity,Urine 1.002 (1.001-1.035); Squamous Epithelial Cell,Urine <1 /hpf (0-4); Urobilinogen,Urine <2.0 mg/dL (<2.0); WBC,Urine 11 /hpf (0-5)
--- NOTE | 2018-02-17 01:03 | ED ---
Female Urogenital HPI - General Chief complaint: Urogenital Stated complaint: bladder problems Time Seen by Provider: 02/17/18 00:37 Source: patient, RN notes reviewed Mode of arrival: ambulatory Limitations: no limitations - History of Present Illness Initial comments: This is a 22-year-old female who presents to the emergency department with chief complaint of possible urinary tract infection. Patient states that over the past one week she has been experiencing dysuria, increased frequency and discomfort during and after urinating. Patient denies any abdominal pain, flank pain, fevers or chills, vaginal bleeding, nausea or vomiting, diarrhea or constipation, hematuria. Last Menstrual Period: 01/26/18 - Related Data Home Medications Medication Instructions Recorded Confirmed Ibuprofen [Motrin Ib] 400 mg PO Q6H PRN 12/17/17 01/12/18 Previous Rx's Medication Instructions Recorded Dicyclomine [Bentyl] 20 mg PO QID PRN #20 tablet 01/12/18 Famotidine [Pepcid] 20 mg PO BID #20 tablet 01/12/18 Ondansetron [Zofran ODT] 8 mg PO Q8HR PRN #12 tab 01/12/18 Nitrofurantoin Monohyd/M-Cryst 100 mg PO Q12HR #14 cap 01/23/18 [Macrobid] Phenazopyridine [Pyridium] 100 mg PO TID #12 tablet 01/23/18 Cephalexin [Keflex] 250 mg PO Q6HR #20 cap 02/17/18 Phenazopyridine HCl [Pyridium] 100 mg PO TID #6 tab 02/17/18 Allergies Allergy/AdvReac Type Severity Reaction Status Date / Time No Known Allergies Allergy Verified 02/17/18 00:01 Review of Systems ROS Statement: Those systems with pertinent positive or pertinent negative responses have been documented in the HPI. ROS Other: All systems not noted in ROS Statement are negative. Past Medical History Past Medical History: Asthma History of Any Multi-Drug Resistant Organisms: None Reported Past Surgical History: Hernia Repair, Tubal Ligation Additional Past Surgical History / Comment(s): Ectopic , D&C, Past Psychological History: Anxiety, Depression Smoking Status: Current every day smoker Past Alcohol Use History: None Reported Past Drug Use History: Marijuana General Exam - General Exam Comments Initial Comments: General: Awake and alert, well-developed; in no apparent distress. Patient does not appear acutely ill. HEENT: Head atraumatic, normocephalic. Pupils are equal, round and reactive to light. Extraocular movements intact. Oropharynx moist without erythema or exudate. Neck: Supple. Normal ROM. Cardiovascular: Regular rate and rhythm. No murmurs, rubs or gallops. Chest symmetrical. Respiratory: Lungs clear to auscultation bilaterally. No wheezes, rales or rhonchi. Normal respiratory effort with no use of accessory muscles. Abdomen: Soft, non-tender, non-distended. No rigidity, rebound or guarding. Normal bowel sounds in all 4 quadrants. Musculoskeletal: Normal ROM, no tenderness bilateral upper and lower extremities. Ambulating normally. Skin: [place], warm and dry without rashes or lesions. Neurological: Alert and oriented x3. CN II-XII grossly intact. Speech is fluent and answers are appropriate. No focal neuro deficits. Psychiatric: Normal mood and affect. No overt signs of depression or anxiety noted. Limitations: no limitations Course Vital Signs 02/16/18 23:58 Temperature 98.2 F Pulse Rate 83 Respiratory 16 Rate Blood Pressure 114/70 O2 Sat by Pulse 98 Oximetry Medical Decision Making - Medical Decision Making This is a 22-year-old female who presents to the emergency department with chief complaint of possible urinary tract infection. Patient complains of increased frequency, dysuria for the past one week. Patient states that her current symptoms are similar to her previous urinary tract infections. Abdomen is soft and nontender. UA reveals moderate leukocyte esterase and white blood cells. Urine hCG is negative. Patient will be treated for a urinary tract infection. Vital signs are stable and patient is in no acute distress. She will be discharged home at this time. Patient is in agreement with plan and voices understanding. All questions answered. - Lab Data Lab Results 02/17/18 02/17/18 Range/Units 00:20 00:20 Urine Color Colorless Urine Appearance Clear (Clear) Urine pH 6.0 (5.0-8.0) Ur Specific [place] 1.002 (1.001-1.035) Urine Protein Negative (Negative) Urine Glucose (UA) Negative (Negative) Urine Ketones Negative (Negative) Urine Blood Negative (Negative) Urine Nitrite Negative (Negative) Urine Bilirubin Negative (Negative) Urine Urobilinogen <2.0 (<2.0) mg/dL Ur Leukocyte Esterase Moderate H (Negative) Urine RBC <1 (0-5) /hpf Urine WBC 11 H (0-5) /hpf Ur Squamous Epith Cells <1 (0-4) /hpf Urine HCG, Qual Not Detected (Not Detectd) Disposition Clinical Impression: UTI (urinary tract infection) Disposition: HOME SELF-CARE Condition: Good Instructions: Urinary Tract Infection in Women (ED) Additional Instructions: Please take medications as prescribed. Please follow up with primary care provider within 1-2 days. Return to emergency department if symptoms should worsen or any concerns arise. Prescriptions: Cephalexin [Keflex] 250 mg PO Q6HR #20 cap Phenazopyridine HCl [Pyridium] 100 mg PO TID #6 tab Is patient prescribed a controlled substance at d/c from ED?: No Referrals: None,Stated [Primary Care Provider] - 1-2 days Time of Disposition: 01:29
[2018-02-17 01:41] VITALS: BP 104/55; PULSE 87; RESP 18; TEMP 98
== END 2018-02-17 01:41 | disposition home or self-care (01) ==
LOC: EC 23:39
DX: N39.0 Urinary tract infection, site not specified (principal); F17.200 Nicotine dependence, unspecified, uncomplicated; Z98.51 Tubal ligation status; Z98.890 Other specified postprocedural states
CPT/HCPCS: 81001; 81025; 87077; 87086; 87186; 99283

== ENCOUNTER 2018-10-01 07:36 | Emergency (ER) | payer OTHER ==
[2018-10-01 07:41] VITALS: BP 122/74; PULSE 100; RESP 18; TEMP 98.5
[2018-10-01] MEDS ORDERED: ONDANSETRON 4 MG/2 ML VIAL IVP STA (07:51)
[2018-10-01] MEDS ORDERED: SODIUM CHLORIDE 0.9% 500 ML 500 ML IV STA (07:51)
[2018-10-01] MEDS ORDERED: SODIUM CHLORIDE 0.9% 1,000 ML IV STA (07:51)
[2018-10-01] MEDS ORDERED: PANTOPRAZOLE 40 MG/10 ML VIAL IVP STA (07:51)
--- NOTE | 2018-10-01 07:54 | ED ---
Abdominal Pain HPI - General Chief Complaint: Abdominal Pain Stated Complaint: vomiting Time Seen by Provider: 10/01/18 07:42 Source: patient, RN notes reviewed Mode of arrival: ambulatory Limitations: no limitations - History of Present Illness Initial Comments: 23-year-old female presents emergency Department with chief complaint of nausea vomiting abdominal pain. Patient states that this started 3-4 days ago. Patient states she's also been constipated last 2-3 days which she normally is regular. She states that she has not had a recent mental cycle though she does not believe she is . Patient states that she has just been dry heaving to this point now. Patient denies any hematemesis or coffee-ground emesis. Denies any sick contacts. Patient had a hernia surgery in the past no other abdominal surgeries. Patient denies any back pain, flank pain. No fever no chills. - Related Data Previous Rx's Medication Instructions Recorded Metoclopramide [Reglan] 10 mg PO TID PRN #15 tab 10/01/18 Allergies Allergy/AdvReac Type Severity Reaction Status Date / Time No Known Allergies Allergy Verified 10/01/18 09:30 Review of Systems ROS Statement: Those systems with pertinent positive or pertinent negative responses have been documented in the HPI. ROS Other: All systems not noted in ROS Statement are negative. Past Medical History Past Medical History: Asthma History of Any Multi-Drug Resistant Organisms: None Reported Past Surgical History: Hernia Repair, Tubal Ligation Additional Past Surgical History / Comment(s): Ectopic , D&C, Past Psychological History: Anxiety, Depression Smoking Status: Current every day smoker Past Alcohol Use History: None Reported Past Drug Use History: None Reported, Marijuana General Exam Limitations: no limitations General appearance: alert, in no apparent distress Head exam: Present: atraumatic, normocephalic, normal inspection Neck exam: Present: normal inspection. Absent: tenderness, meningismus, lymphadenopathy Respiratory exam: Present: normal lung sounds bilaterally. Absent: respiratory distress, wheezes, rales, rhonchi, stridor Cardiovascular Exam: Present: regular rate, normal rhythm, normal heart sounds. Absent: systolic murmur, diastolic murmur, rubs, gallop, clicks GI/Abdominal exam: Present: soft, tenderness (Mild diffuse), normal bowel sounds. Absent: distended, guarding, rebound, rigid Back exam: Absent: CVA tenderness (R), CVA tenderness (L) Skin exam: Present: warm, dry, intact, normal color. Absent: rash Course Vital Signs 10/01/18 07:38 Temperature 98.5 F Pulse Rate 100 Respiratory 18 Rate Blood Pressure 122/74 O2 Sat by Pulse 100 Oximetry Medical Decision Making - Medical Decision Making 23-year-old female presented from for nausea vomiting. Patient's found to be also shows single viable IUP 5 weeks and 5 days. Patient was hydrated with 2 L as she had 4+ ketones. Given antiemetics and will be discharged at this time to follow-up with her [employer]. - Lab Data Result diagrams: 10/01/18 08:16 10/01/18 08:16 Lab Results 10/01/18 10/01/18 10/01/18 Range/Units 08:05 08:05 08:16 WBC (3.8-10.6) k/uL RBC (3.80-5.40) m/uL Hgb (11.4-16.0) gm/dL Hct (34.0-46.0) % MCV (80.0-100.0) fL MCH (25.0-35.0) pg MCHC (31.0-37.0) g/dL RDW (11.5-15.5) % Plt Count (150-450) k/uL Neutrophils % % Lymphocytes % % Monocytes % % Eosinophils % % Basophils % % Neutrophils # (1.3-7.7) k/uL Lymphocytes # (1.0-4.8) k/uL Monocytes # (0-1.0) k/uL Eosinophils # (0-0.7) k/uL Basophils # (0-0.2) k/uL Sodium 139 (137-145) mmol/L Potassium 4.1 (3.5-5.1) mmol/L Chloride 106 (98-107) mmol/L Carbon Dioxide 23 (22-30) mmol/L Anion Gap 10 mmol/L BUN 10 (7-17) mg/dL Creatinine 0.66 (0.52-1.04) mg/dL Est GFR (CKD-EPI)AfAm >90 (>60 ml/min/1.73 sqM) Est GFR (CKD-EPI)NonAf >90 (>60 ml/min/1.73 sqM) Glucose 106 H (74-99) mg/dL Calcium 10.1 (8.4-10.2) mg/dL Total Bilirubin 0.7 (0.2-1.3) mg/dL AST 16 (14-36) U/L ALT 29 (9-52) U/L Alkaline Phosphatase 57 (38-126) U/L Total Protein 8.0 (6.3-8.2) g/dL Albumin 4.8 (3.5-5.0) g/dL Amylase 106 (30-110) U/L Lipase 57 (23-300) U/L HCG, Quant mIU/mL Urine Color Yellow Urine Appearance Turbid H (Clear) Urine pH 6.0 (5.0-8.0) Ur Specific [place] 1.022 (1.001-1.035) Urine Protein 1+ H (Negative) Urine Glucose (UA) Negative (Negative) Urine Ketones 4+ H (Negative) Urine Blood Negative (Negative) Urine Nitrite Negative (Negative) Urine Bilirubin Negative (Negative) Urine Urobilinogen <2.0 (<2.0) mg/dL Ur Leukocyte Esterase Negative (Negative) Urine WBC 22 H (0-5) /hpf Ur Squamous Epith Cells 45 H (0-4) /hpf Urine Mucus Many H (None) /hpf Urine HCG, Qual Detected (Not Detectd) 10/01/18 10/01/18 Range/Units 08:16 08:16 WBC 6.8 (3.8-10.6) k/uL RBC 4.68 (3.80-5.40) m/uL Hgb 13.9 (11.4-16.0) gm/dL Hct 41.4 (34.0-46.0) % MCV 88.5 (80.0-100.0) fL MCH 29.8 (25.0-35.0) pg MCHC 33.6 (31.0-37.0) g/dL RDW 11.9 (11.5-15.5) % Plt Count 361 (150-450) k/uL Neutrophils % 72 % Lymphocytes % 16 % Monocytes % 8 % Eosinophils % 1 % Basophils % 1 % Neutrophils # 4.9 (1.3-7.7) k/uL Lymphocytes # 1.1 (1.0-4.8) k/uL Monocytes # 0.5 (0-1.0) k/uL Eosinophils # 0.0 (0-0.7) k/uL Basophils # 0.1 (0-0.2) k/uL Sodium (137-145) mmol/L Potassium (3.5-5.1) mmol/L Chloride (98-107) mmol/L Carbon Dioxide (22-30) mmol/L Anion Gap mmol/L BUN (7-17) mg/dL Creatinine (0.52-1.04) mg/dL Est GFR (CKD-EPI)AfAm (>60 ml/min/1.73 sqM) Est GFR (CKD-EPI)NonAf (>60 ml/min/1.73 sqM) Glucose (74-99) mg/dL Calcium (8.4-10.2) mg/dL Total Bilirubin (0.2-1.3) mg/dL AST (14-36) U/L ALT (9-52) U/L Alkaline Phosphatase (38-126) U/L Total Protein (6.3-8.2) g/dL Albumin (3.5-5.0) g/dL Amylase (30-110) U/L Lipase (23-300) U/L HCG, Quant 03756.3 mIU/mL Urine Color Urine Appearance (Clear) Urine pH (5.0-8.0) Ur Specific [place] (1.001-1.035) Urine Protein (Negative) Urine Glucose (UA) (Negative) Urine Ketones (Negative) Urine Blood (Negative) Urine Nitrite (Negative) Urine Bilirubin (Negative) Urine Urobilinogen (<2.0) mg/dL Ur Leukocyte Esterase (Negative) Urine WBC (0-5) /hpf Ur Squamous Epith Cells (0-4) /hpf Urine Mucus (None) /hpf Urine HCG, Qual (Not Detectd) Disposition Clinical Impression: , Nausea & vomiting, Dehydration Disposition: HOME SELF-CARE Condition: Stable Instructions (If sedation given, give patient instructions): Hyperemesis Gravidarum (ED) Additional Instructions: Please return to the Emergency Department if symptoms worsen or any other concerns. Prescriptions: Metoclopramide [Reglan] 10 mg PO TID PRN #15 tab PRN Reason: GERD Is patient prescribed a controlled substance at d/c from ED?: No Referrals: None,Stated [Primary Care Provider] - 1-2 days Time of Disposition: 10:10
[2018-10-01 08:32] LABS: Appearance,Urine Turbid (Clear); Bilirubin,Urine Negative (Negative); Blood,Urine Negative (Negative); Color,Urine Yellow; Glucose,Urine (UA) Negative (Negative); Ketones,Urine 4+ (Negative); Leukocyte Esterase,Urine Negative (Negative); Mucus,Urine Many /hpf; Nitrite,Urine Negative (Negative); Protein,Urine 1+ (Negative); Specific Gravity,Urine 1.022 (1.001-1.035); Squamous Epithelial Cell,Urine 45 /hpf (0-4); Urobilinogen,Urine <2.0 mg/dL (<2.0)
[2018-10-01 08:35] LABS: Basophils # (A) 0.1 k/uL (0-0.2); Basophils % (A) 1 %; Eosinophils % (A) 1 %; HCT 41.4 % (34.0-46.0); HGB 13.9 gm/dL (11.4-16.0); Lymphocytes # (A) 1.1 k/uL (1.0-4.8); Lymphocytes % (A) 16 %; MCH 29.8 pg (25.0-35.0); MCHC 33.6 g/dL (31.0-37.0); MCV 88.5 fL (80.0-100.0); Mean Platelet Volume 6.3; Monocytes # (A) 0.5 k/uL (0-1.0); Monocytes % (A) 8 %; Neutrophils # (A) 4.9 k/uL (1.3-7.7); Neutrophils % (A) 72 %; Platelet Count 361 k/uL (150-450); RBC 4.68 m/uL (3.80-5.40); RDW 11.9 % (11.5-15.5); WBC 6.8 k/uL (3.8-10.6)
[2018-10-01 08:45] LABS: ALT 29 U/L (9-52); AST 16 U/L (14-36); Albumin 4.8 g/dL (3.5-5.0); Alkaline Phosphatase 57 U/L (38-126); Amylase 106 U/L (30-110); Anion Gap 10 mmol/L; Blood Urea Nitrogen 10 mg/dL (7-17); Calcium 10.1 mg/dL (8.4-10.2); Carbon Dioxide 23 mmol/L (22-30); Chloride 106 mmol/L (98-107); Glucose 106 mg/dL (74-99); Lipase 57 U/L (23-300); Potassium 4.1 mmol/L (3.5-5.1); Sodium 139 mmol/L (137-145); Total Bilirubin 0.7 mg/dL (0.2-1.3)
[2018-10-01] MEDS ORDERED: SODIUM CHLORIDE 0.9% 500 ML 500 ML IV ONE (09:36)
--- NOTE | 2018-10-01 09:53 | US ---
EXAMINATION TYPE: Transabdominal DATE OF EXAM: 10/01/2018 9:17 AM COMPARISON: NONE CLINICAL HISTORY: 23-year-old female Pain. Pelvic pain and N/V 4 days EXAM PERFORMED: Transvaginal (TV) and Transabdominal (TA) FINDINGS: EXAM MEASUREMENTS: GESTATIONAL AGE / DATING Physician Established: Not established yet Dates by LMP: Unknown Dates by First Scan: This is 1st scan Dates by Current Scan for: ( 5 weeks/5 days) EDC: 05/29/2019 MATERNAL ANATOMY Uterus: 7.6 x 4.6 x 6.0cm, anteverted Right Ovary: 2.3 x 1.3 x 1.5cm Left Ovary: 3.3 x 2.0 x 2.3cm Post CDS / Adnexa: small amount of free fluid in posterior cul de sac Presence of free fluid: yes Presence of corpus luteal cyst: left ovary: 1.7 x 1.3 x 1.6cm hypoechoic area Presence of subchorionic bleed: no GESTATION / SURVEY CRL: 0.3cm (5 weeks/6 days) MSD: 1.4cm (5 weeks/4 days) Yolk Sac (normal less than 6mm): 3.2mm Heart Rate: 95 bpm, borderline bradycardia Rhythm: Normal IUP: Viable IUP Date of LMP: Unknown Beta HcG (if available): Not available at time of exam. Produce Team Member notes: Viable single IUP measuring 5 weeks 5 days with a heart rate of 95bpm and an estim ated delivery date of 05/29/2019. IMPRESSION: 1. Single live intrauterine with gestational age of 5 weeks 5 days by crown-rump length. 2. Borderline bradycardia for a gestation of this age (95 BPM). Follow-up can be performed. 3. Corpus luteum within the left ovary. 4. Small amount of pelvic free fluid.
[2018-10-01] MEDS ORDERED: METOCLOPRAMIDE 5 MG/ML 2 ML VIAL IVP STA (10:08)
== END 2018-10-01 11:05 | disposition home or self-care (01) ==
LOC: EC 07:36
DX: O99.281 Endocrine, nutritional and metabolic diseases complicating pregnancy, first trimester (principal); E86.0 Dehydration; O21.9 Vomiting of pregnancy, unspecified; O99.331 Smoking (tobacco) complicating pregnancy, first trimester; F17.200 Nicotine dependence, unspecified, uncomplicated; Z3A.01 Less than 8 weeks gestation of pregnancy
CPT/HCPCS: 36415; 80053; 82150; 83690; 85025; 81001; 81025; 84702; 87086; 76801; 76817; 99284; 96374; 96375 ×2; 96361 ×2; J2765; J2405; C9113

== ENCOUNTER 2018-10-26 06:04 | Emergency (ER) | payer OTHER ==
[2018-10-26 06:50] LABS: Basophils % (A) 1 %; Eosinophils # (A) 0.1 k/uL (0-0.7); Eosinophils % (A) 1 %; HCT 39.3 % (34.0-46.0); HGB 13.1 gm/dL (11.4-16.0); Lymphocytes # (A) 1.2 k/uL (1.0-4.8); Lymphocytes % (A) 14 %; MCH 29.1 pg (25.0-35.0); MCHC 33.4 g/dL (31.0-37.0); MCV 87.4 fL (80.0-100.0); Mean Platelet Volume 7.3; Monocytes # (A) 0.6 k/uL (0-1.0); Monocytes % (A) 8 %; Neutrophils # (A) 6.1 k/uL (1.3-7.7); Neutrophils % (A) 74 %; Platelet Count 346 k/uL (150-450); RBC 4.49 m/uL (3.80-5.40); RDW 12.4 % (11.5-15.5); WBC 8.3 k/uL (3.8-10.6)
[2018-10-26 06:54] LABS: Appearance,Urine Cloudy (Clear); Bacteria,Urine Occasional /hpf; Bilirubin,Urine Negative (Negative); Blood,Urine Negative (Negative); Color,Urine Yellow; Glucose,Urine (UA) Negative (Negative); Ketones,Urine 2+ (Negative); Leukocyte Esterase,Urine Negative (Negative); Mucus,Urine Many /hpf; Nitrite,Urine Negative (Negative); PH, Urine 6.5 (5.0-8.0); Protein,Urine 1+ (Negative); Specific Gravity,Urine 1.024 (1.001-1.035); Squamous Epithelial Cell,Urine 21 /hpf (0-4); WBC,Urine 9 /hpf (0-5)
[2018-10-26 07:01] LABS: ALT 25 U/L (9-52); AST 14 U/L (14-36); Albumin 4.3 g/dL (3.5-5.0); Alkaline Phosphatase 47 U/L (38-126); Amylase 100 U/L (30-110); Anion Gap 9 mmol/L; Blood Urea Nitrogen 10 mg/dL (7-17); Calcium 9.5 mg/dL (8.4-10.2); Carbon Dioxide 26 mmol/L (22-30); Chloride 104 mmol/L (98-107); Glucose 116 mg/dL (74-99); Lipase 73 U/L (23-300); Potassium 3.9 mmol/L (3.5-5.1); Sodium 139 mmol/L (137-145); Total Bilirubin 0.4 mg/dL (0.2-1.3); Total Protein 7.2 g/dL (6.3-8.2)
[2018-10-26] MEDS ORDERED: ONDANSETRON 4 MG/2 ML VIAL IVP STA (07:10)
[2018-10-26] MEDS ORDERED: SODIUM CHLORIDE 0.9% 500 ML 500 ML IV ONE (07:11)
[2018-10-26] MEDS ORDERED: SODIUM CHLORIDE 0.9% 1,000 ML IV ONE (07:11)
--- NOTE | 2018-10-26 08:36 | ED ---
General Adult HPI - General Chief complaint: Nausea/Vomiting/Diarrhea Stated complaint: vomiting, 9wks preg Time Seen by Provider: 10/26/18 06:40 Source: patient, RN notes reviewed Mode of arrival: ambulatory Limitations: no limitations - History of Present Illness Initial comments: this is a 23-year-old female who presents emergency Department secondary to vomiting. Patient states she is about 9 weeks . Patient states she's already had a ultrasound showed an intrauterine . Patient denies any abdominal pain patient denies any vaginal bleeding patient denies any pelvic cramping. Patient states she just can't keep anything down for the last 2 days. I walked into the room the patient was eating a chocolate bar drinking sowmya judith. Patient denies any chest pain difficult breathing shortness of breath. Patient denies any diarrhea. Patient denied any fever chills. Patient denies any lightheadedness or dizziness. - Related Data Home Medications Medication Instructions Recorded Confirmed Fnt-Njfw-Dxjmx Acid 1 cap PO DAILY 10/26/18 10/26/18 [-U Capsule (formulary)] Previous Rx's Medication Instructions Recorded Metoclopramide [Reglan] 10 mg PO Q8H #6 tab 10/26/18 Allergies Allergy/AdvReac Type Severity Reaction Status Date / Time No Known Allergies Allergy Verified 10/26/18 07:58 Review of Systems ROS Statement: Those systems with pertinent positive or pertinent negative responses have been documented in the HPI. ROS Other: All systems not noted in ROS Statement are negative. Past Medical History Past Medical History: Asthma History of Any Multi-Drug Resistant Organisms: None Reported Past Surgical History: Hernia Repair, Tubal Ligation Additional Past Surgical History / Comment(s): Ectopic , D&C, Past Psychological History: Anxiety, Depression Smoking Status: Current every day smoker Past Alcohol Use History: None Reported Past Drug Use History: None Reported, Marijuana General Exam - General Exam Comments Initial Comments: GENERAL: Patient is well-developed and well-nourished. Patient is nontoxic and well-hyd rated and is in mild distress. ENT: Neck is soft and supple. No significant lymphadenopathy is noted. Oropharynx is clear. Moist mucous membranes. Neck has full range of motion without eliciting any pain. EYES: The sclera were anicteric and conjunctiva were pink and moist. Extraocular movements were intact and pupils were equal round and reactive to light. Eyelids were unremarkable. PULMONARY: Unlabored respirations. Good breath sounds bilaterally. No audible rales rhonchi or wheezing was noted. CARDIOVASCULAR: There is a regular rate and rhythm without any murmurs gallops or rubs. ABDOMEN: Soft and nontender with normal bowel sounds. No palpable organomegaly was noted. There is no palpable pulsatile mass. SKIN: Skin is clear with no lesions or rashes and otherwise unremarkable. NEUROLOGIC: Patient is alert and oriented x3. Cranial nerves II through XII are grossly intact. Motor and sensory are also intact. Normal speech, volume and content. Symmetrical smile. MUSCULOSKELETAL: Normal extremities with adequate strength and full range of motion. LYMPHATICS: No significant lymphadenopathy is noted PSYCHIATRIC: Normal psychiatric evaluation. Limitations: no limitations Course Vital Signs 10/26/18 06:07 Temperature 98.7 F Pulse Rate 91 Respiratory 18 Rate Blood Pressure 108/70 O2 Sat by Pulse 96 Oximetry Medical Decision Making - Medical Decision Making I went back into reevaluate the patient she was feeling considerably better - Lab Data Result diagrams: 10/26/18 06:20 10/26/18 06:20 Lab Results 10/26/18 10/26/18 10/26/18 Range/Units 06:20 06:20 06:20 WBC 8.3 (3.8-10.6) k/uL RBC 4.49 (3.80-5.40) m/uL Hgb 13.1 (11.4-16.0) gm/dL Hct 39.3 (34.0-46.0) % MCV 87.4 (80.0-100.0) fL MCH 29.1 (25.0-35.0) pg MCHC 33.4 (31.0-37.0) g/dL RDW 12.4 (11.5-15.5) % Plt Count 346 (150-450) k/uL Neutrophils % 74 % Lymphocytes % 14 % Monocytes % 8 % Eosinophils % 1 % Basophils % 1 % Neutrophils # 6.1 (1.3-7.7) k/uL Lymphocytes # 1.2 (1.0-4.8) k/uL Monocytes # 0.6 (0-1.0) k/uL Eosinophils # 0.1 (0-0.7) k/uL Basophils # 0.0 (0-0.2) k/uL Sodium 139 (137-145) mmol/L Potassium 3.9 (3.5-5.1) mmol/L Chloride 104 (98-107) mmol/L Carbon Dioxide 26 (22-30) mmol/L Anion Gap 9 mmol/L BUN 10 (7-17) mg/dL Creatinine 0.54 (0.52-1.04) mg/dL Est GFR (CKD-EPI)AfAm >90 (>60 ml/min/1.73 sqM) Est GFR (CKD-EPI)NonAf >90 (>60 ml/min/1.73 sqM) Glucose 116 H (74-99) mg/dL Calcium 9.5 (8.4-10.2) mg/dL Total Bilirubin 0.4 (0.2-1.3) mg/dL AST 14 (14-36) U/L ALT 25 (9-52) U/L Alkaline Phosphatase 47 (38-126) U/L Total Protein 7.2 (6.3-8.2) g/dL Albumin 4.3 (3.5-5.0) g/dL Amylase 100 (30-110) U/L Lipase 73 (23-300) U/L Urine Color Urine Appearance (Clear) Urine pH (5.0-8.0) Ur Specific [place] (1.001-1.035) Urine Protein (Negative) Urine Glucose (UA) (Negative) Urine Ketones (Negative) Urine Blood (Negative) Urine Nitrite (Negative) Urine Bilirubin (Negative) Urine Urobilinogen (<2.0) mg/dL Ur Leukocyte Esterase (Negative) Urine WBC (0-5) /hpf Ur Squamous Epith Cells (0-4) /hpf Urine Bacteria (None) /hpf Urine Mucus (None) /hpf Urine HCG, Qual Detected (Not Detectd) 10/26/18 Range/Units 06:20 WBC (3.8-10.6) k/uL RBC (3.80-5.40) m/uL Hgb (11.4-16.0) gm/dL Hct (34.0-46.0) % MCV (80.0-100.0) fL MCH (25.0-35.0) pg MCHC (31.0-37.0) g/dL RDW (11.5-15.5) % Plt Count (150-450) k/uL Neutrophils % % Lymphocytes % % Monocytes % % Eosinophils % % Basophils % % Neutrophils # (1.3-7.7) k/uL Lymphocytes # (1.0-4.8) k/uL Monocytes # (0-1.0) k/uL Eosinophils # (0-0.7) k/uL Basophils # (0-0.2) k/uL Sodium (137-145) mmol/L Potassium (3.5-5.1) mmol/L Chloride (98-107) mmol/L Carbon Dioxide (22-30) mmol/L Anion Gap mmol/L BUN (7-17) mg/dL Creatinine (0.52-1.04) mg/dL Est GFR (CKD-EPI)AfAm (>60 ml/min/1.73 sqM) Est GFR (CKD-EPI)NonAf (>60 ml/min/1.73 sqM) Glucose (74-99) mg/dL Calcium (8.4-10.2) mg/dL Total Bilirubin (0.2-1.3) mg/dL AST (14-36) U/L ALT (9-52) U/L Alkaline Phosphatase (38-126) U/L Total Protein (6.3-8.2) g/dL Albumin (3.5-5.0) g/dL Amylase (30-110) U/L Lipase (23-300) U/L Urine Color Yellow Urine Appearance Cloudy H (Clear) Urine pH 6.5 (5.0-8.0) Ur Specific [place] 1.024 (1.001-1.035) Urine Protein 1+ H (Negative) Urine Glucose (UA) Negative (Negative) Urine Ketones 2+ H (Negative) Urine Blood Negative (Negative) Urine Nitrite Negative (Negative) Urine Bilirubin Negative (Negative) Urine Urobilinogen 2.0 (<2.0) mg/dL Ur Leukocyte Esterase Negative (Negative) Urine WBC 9 H (0-5) /hpf Ur Squamous Epith Cells 21 H (0-4) /hpf Urine Bacteria Occasional H (None) /hpf Urine Mucus Many H (None) /hpf Urine HCG, Qual (Not Detectd) Disposition Clinical Impression: , Nausea & vomiting Disposition: HOME SELF-CARE Condition: Good Instructions (If sedation given, give patient instructions): Acute Nausea and Vomiting (ED) Prescriptions: Metoclopramide [Reglan] 10 mg PO Q8H #6 tab Is patient prescribed a controlled substance at d/c from ED?: No Referrals: None,Stated [Primary Care Provider] - 1-2 days Time of Disposition: 08:35
[2018-10-26 09:45] VITALS: BP 128/70; PULSE 78; RESP 16; TEMP 97.8
== END 2018-10-26 09:44 | disposition home or self-care (01) ==
LOC: EC 06:04
DX: O21.9 Vomiting of pregnancy, unspecified (principal); O99.331 Smoking (tobacco) complicating pregnancy, first trimester; F17.200 Nicotine dependence, unspecified, uncomplicated; Z3A.09 9 weeks gestation of pregnancy
CPT/HCPCS: 36415; 80053; 82150; 83690; 85025; 81001; 81025; 99284; 96374; 96361 ×2; J2405

== ENCOUNTER 2018-12-24 00:48 | Emergency (ER) | payer OTHER ==
[2018-12-24 00:58] VITALS: RESP 18; TEMP 97.9
[2018-12-24] MEDS ORDERED: LIDOCAINE 1% INJ 10MG/ML (20 ML MDV) SQ ONE (01:37)
[2018-12-24] MEDS ORDERED: BUPIVACAINE (PF) 0.5% 30 ML VIAL SQ STA (01:38)
--- NOTE | 2018-12-24 02:19 | ED ---
ENT HPI - General Chief complaint: Dental/Oral Stated complaint: Dental Pain, 18 wks preg Time Seen by Provider: 12/24/18 01:06 Source: patient Mode of arrival: ambulatory Limitations: no limitations - History of Present Illness complaint: tooth pain Onset/Timin -: week(s) Location: tooth # (18) Severity: moderate Quality: aching Consistency: constant Improves with: none Worsens with: none - Related Data Home Medications Medication Instructions Recorded Confirmed Bfx-Wcja-Sglco Acid 1 cap PO DAILY 10/26/18 10/26/18 [-U Capsule (formulary)] Previous Rx's Medication Instructions Recorded Metoclopramide [Reglan] 10 mg PO Q8H #6 tab 10/26/18 Amoxicillin 875 mg PO Q12HR #14 tablet 12/24/18 Allergies Allergy/AdvReac Type Severity Reaction Status Date / Time No Known Allergies Allergy Verified 10/26/18 07:58 Review of Systems ROS Statement: Those systems with pertinent positive or pertinent negative responses have been documented in the HPI. ROS Other: All systems not noted in ROS Statement are negative. Constitutional: Denies: fever, chills Eyes: Denies: eye pain, vision change ENT: Denies: ear pain, throat pain Respiratory: Denies: cough, dyspnea Cardiovascular: Denies: palpitations Neurological: Denies: headache Past Medical History Past Medical History: Asthma History of Any Multi-Drug Resistant Organisms: None Reported Past Surgical History: Hernia Repair, Tubal Ligation Additional Past Surgical History / Comment(s): Ectopic , D&C, Past Psychological History: Anxiety, Depression Smoking Status: Current every day smoker Past Alcohol Use History: None Reported Past Drug Use History: None Reported, Marijuana General Exam Limitations: no limitations General appearance: alert, in no apparent distress Head exam: Present: atraumatic, normocephalic Eye exam: Present: normal appearance. Absent: scleral icterus, conjunctival injection ENT exam: Present: normal oropharynx, mucous membranes moist, other (Patient is significant caries to tooth #19. There is no abscess. No sublingual or neck. Fullness Or tenderness no Alli angina) Neck exam: Present: normal inspection. Absent: tenderness, meningismus, lymphadenopathy Skin exam: Present: warm, dry, intact, normal color. Absent: rash Course Vital Signs 05/16/19 05/16/19 00:54 02:41 Temperature 97.9 F Pulse Rate 94 82 Respiratory 18 18 Rate Blood Pressure 105/64 119/66 O2 Sat by Pulse 99 96 Oximetry Disposition Clinical Impression: Dental caries, Toothache Disposition: HOME SELF-CARE Condition: Good Instructions (If sedation given, give patient instructions): Dental Caries (ED), Toothache (ED) Prescriptions: Amoxicillin 875 mg PO Q12HR #14 tablet Is patient prescribed a controlled substance at d/c from ED?: No Referrals: None,Stated [Primary Care Provider] - 1-2 days
[2018-12-24] MEDS ORDERED: AMOXICILLIN 500MG STARTER PACK 3 CAP BTL PO STA (02:21)
[2018-12-24 02:44] VITALS: BP 119/66; PULSE 82
--- NOTE | 2018-12-29 05:14 | CDI ---
Documentation Clarification OP Dear Naseem PASCUAL MD Please provide the addendum for dental block procedure (Bupivacaine was administered). Thank you, Stacie Honeycutt Pressure Sealer And Tester If you have any question, Please contact coding team lead at [phone] MTDD
== END 2018-12-24 02:41 | disposition home or self-care (01) ==
LOC: EC 00:48
DX: O99.612 Diseases of the digestive system complicating pregnancy, second trimester (principal); K02.9 Dental caries, unspecified; O99.332 Smoking (tobacco) complicating pregnancy, second trimester; F17.200 Nicotine dependence, unspecified, uncomplicated; Z3A.18 18 weeks gestation of pregnancy
CPT/HCPCS: 99282; 64400; J2001

== ENCOUNTER 2019-04-21 16:12 | Emergency (ER) | payer OTHER ==
[2019-04-21 16:37] VITALS: RESP 18
--- NOTE | 2019-04-21 17:26 | ED ---
Eye Problem HPI - General Chief complaint: Eye Problems Stated complaint: Irritated eyes Time Seen by Provider: 04/21/19 16:48 Source: family Mode of arrival: ambulatory Limitations: no limitations - History of Present Illness Initial comments: Patient is a 23-year-old female presenting to emergency Department with complaints of bilateral eye irritation x 1 week. Patient states they have been itchy, irritated feeling, and stringy white discharge. Patient denies any fever, chills. Patient states she did have a recent URI. Patient is presently 34 weeks . No complications. Patient denies wearing contacts. Patient denies any injuries to the eyes. Patient states there is no blurry vision, headaches. No other complaints at this time. Vital signs are stable upon arrival. - Related Data Home Medications Medication Instructions Recorded Confirmed Otg-Uksz-Moxyc Acid 1 cap PO DAILY 10/26/18 10/26/18 [-U Capsule (formulary)] Previous Rx's Medication Instructions Recorded Metoclopramide [Reglan] 10 mg PO Q8H #6 tab 10/26/18 Amoxicillin 875 mg PO Q12HR #14 tablet 12/24/18 Ketotifen 0.025% Ophth Soln 1 drop BOTH EYES BID 5 Days #1 04/21/19 [Zaditor] bottle Allergies Allergy/AdvReac Type Severity Reaction Status Date / Time No Known Allergies Allergy Verified 04/21/19 16:37 Review of Systems ROS Statement: Those systems with pertinent positive or pertinent negative responses have been documented in the HPI. ROS Other: All systems not noted in ROS Statement are negative. Past Medical History Past Medical History: Asthma History of Any Multi-Drug Resistant Organisms: None Reported Past Surgical History: Hernia Repair, Tubal Ligation Additional Past Surgical History / Comment(s): Ectopic , D&C, Past Psychological History: Anxiety, Depression Smoking Status: Current every day smoker Past Alcohol Use History: None Reported Past Drug Use History: None Reported, Marijuana General Exam - General Exam Comments Initial Comments: GENERAL: Well-appearing, well-nourished and in no acute distress. HEAD: Atraumatic, normocephalic. EYES: Pupils equal round and reactive to light, extraocular movements intact, sclera anicteric, conjunctiva are normal. There is mild clear discharge noted at the bottom of the eyelids. ENT: TMs normal, nares patent, oropharynx clear without exudates. Moist mucous membranes. NECK: Normal range of motion, supple without lymphadenopathy or JVD. LUNGS: Breath sounds clear to auscultation bilaterally and equal. No wheezes rales or rhonchi. HEART: Regular rate and rhythm without murmurs, rubs or gallops. ABDOMEN: Soft, nontender, normoactive bowel sounds. No guarding, no rebound. No masses appreciated. Patient is 34 weeks . : Deferred EXTREMITIES: Normal range of motion, no pitting or edema. No clubbing or cyanosis. NEUROLOGICAL: Cranial nerves II through XII grossly intact. Normal speech, normal gait. PSYCH: Normal mood, normal affect. SKIN: Warm, Dry, normal turgor, no rashes or lesions noted. Limitations: no limitations Course Vital Signs 04/21/19 04/21/19 16:34 17:42 Temperature 98.3 F 98.4 F Pulse Rate 116 H 95 Respiratory 18 18 Rate Blood Pressure 106/57 109/65 O2 Sat by Pulse 95 98 Oximetry Medical Decision Making - Medical Decision Making Patient is a 23-year-old female presenting with bilateral eye irritation times one week. Patient describes both eyes as itchy, irritated, stringy discharge. Patient has recent URI and history of ALLERGIES. Patient denies any fever, chills, blurry vision, headache. Discussed with patient that she most likely has ALLERGIC conjunctivitis of both eyes. Patient was prescribed an ALLERGY eyedrop. Patient can also try Claritin for relief. Patient is in agreement with this plan of care. Return parameters were discussed with the patient she verbalized understanding. 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 Patient is stable for discharge. Disposition Clinical Impression: Allergic conjunctivitis of both eyes Disposition: HOME SELF-CARE Condition: Stable Instructions (If sedation given, give patient instructions): Conjunctivitis (ED) Additional Instructions: Please return to the Emergency Department if symptoms worsen or any other concerns. Use drops as indicated. Follow-up with PCP if symptoms persist. Prescriptions: Ketotifen 0.025% Ophth Soln [Zaditor] 1 drop BOTH EYES BID 5 Days #1 bottle Is patient prescribed a controlled substance at d/c from ED?: No Referrals: None,Stated [Primary Care Provider] - 1-2 days
[2019-04-21 17:44] VITALS: BP 109/65; PULSE 95; TEMP 98.4
== END 2019-04-21 17:42 | disposition home or self-care (01) ==
LOC: EC 16:12
DX: O99.89 Other specified diseases and conditions complicating pregnancy, childbirth and the puerperium (principal); H10.13 Acute atopic conjunctivitis, bilateral; O99.333 Smoking (tobacco) complicating pregnancy, third trimester; F17.200 Nicotine dependence, unspecified, uncomplicated; Z79.899 Other long term (current) drug therapy; Z3A.34 34 weeks gestation of pregnancy
CPT/HCPCS: 99283

== ENCOUNTER 2019-05-15 09:23 | Outpatient (CLI) | payer OTHER ==
[2019-05-15 09:56] VITALS: BP 115/68; PULSE 101; RESP 17; TEMP 97.9
--- NOTE | 2019-05-15 12:36 | P.MSEPDOC ---
Presenting Problems - Arrival Data Date of Arrival on Unit: 05/15/19 Time of Arrival on Unit: 09:23 Mode of Transport: Ambulatory - Complaint OB-Reason for Admission/Chief Complaint: Rule Out SROM Comment: pt here with c/o gush of clear fluid at 1500 yesterday, 05/14, pt reports decreased. movement since gush, denies further gushes but reports feeling continued moisture. in vaginal area, denies vb, denies regular contractions/cramping, abd soft and non. tender, pt reports being told her amniotic fluid levels are above normal Medical History - Information : 2 Para: 0 Term: 0 : 0 Abortions: Spontaneous or Elective: 0 Number of Living Children: 0 - Gestational Age Gestational Age by LENO (wks/days): 38 Weeks and 0 Days Review of Systems - Review of Systems Constitutional: No problems Breast: No problems ENT: No problems Cardiovascular: No problems Respiratory: No problems Gastrointestinal: No problems Genitourinary: No problems Musculoskeletal: No problems Neurological: No problems Skin: No problems Vital Signs - Temperature Temperature: 97.9 F Temperature Source: Temporal Artery Scan - Pulse Right Brachial Pulse Rate: 101 Pulse Assessment Method: Automatic Cuff - Respirations Respiratory Rate: 17 Oxygen Delivery Method: Room Air O2 Sat by Pulse Oximetry: 99 - Blood Pressure Right Arm Blood Pressure: 115/68 Blood Pressure Mean: 83 Blood Pressure Source: Automatic Cuff Medical Screen Scoring (Pre) - Cervical Exam Dilation: 0 cm = 0 Membranes: Intact - Uterine Contractions Frequency: > 5 minutes apart = 1 Duration: > 40 seconds = 2 Intensity: N/A - Maternal Vital Signs Maternal Temperature: N/A Maternal Blood Pressure: N/A Signs of Preeclampsia: N/A Maternal Respirations: N/A - Maternal Trauma Maternal Trauma: N/A - Assessment - Baby A Baseline FHR: 130 Heart Rate - NICHD Category: Category I (Normal) = 0 NST: Reactive Position: N/A Station: N/A - Total Score - Baby A Total Score - Baby A: 3 - Total Score - Baby B Total Score - Baby B: 3 - Total Score - Baby C Total Score - Baby C: 3 - Level of Risk - Baby A Level of Risk - Baby A: Low (0-5) - Level of Risk - Baby B Level of Risk - Baby B: Low (0-5) - Level of Risk - Baby C Level of Risk - Baby C: Low (0-5) Physician Notification (Pre) - Physician Notified Physician Notified Date: 05/15/19 Physician Notified Time: 10:02 Physician/Practitioner Notifed:: dr sanches Spoke With: dr sanches New Order Received: Yes (dc home) Disposition - Disposition OB Disposition: Discharge to home, Written follow up instructions reviewed Discharge Date: 05/15/19 Discharge Time: 10:15 I agree with the RN Medical Screening Exam: Yes Risk & Benefit of care provided described in d/c instruction: Yes Diagnosis: FALSE LABOR AT OR AFTER 37 COMPLETED WEEKS OF GESTATION
== END 2019-05-15 10:15 | disposition home or self-care (01) ==
LOC: FBPOP 09:23
PROVIDERS: ATTEND Obstetrics & Gynecology
DX: O47.1 False labor at or after 37 completed weeks of gestation (principal); Z3A.38 38 weeks gestation of pregnancy
CPT/HCPCS: 59025; G0463; 99213

== ENCOUNTER 2019-05-24 06:15 | Inpatient (IN) | payer OTHER ==
[2019-05-24] MEDS ORDERED: CARBOPROST TROMETHAMINE 250 MCG/ML 1 ML AMP IM PRN (06:55)
[2019-05-24] MEDS ORDERED: LIDOCAINE 0.5% (PF) 5 MG/ML (50 ML SDV) SQ PRN (06:55)
[2019-05-24] MEDS ORDERED: METHYLERGONOVINE 0.2 MG/ML 1 ML AMP IM PRN (06:55)
[2019-05-24] MEDS ORDERED: TERBUTALINE 1 MG/ML VIAL SQ PRN (06:55)
[2019-05-24] MEDS ORDERED: OXYTOCIN 10 UNIT/ML 1 ML VIAL IM PRN (06:55)
[2019-05-24] MEDS ORDERED: OXYTOCIN 30 UNITS/500 ML NS 30 UNIT in SALINE 1 500ML.BAG IV SCH (07:00)
[2019-05-24] MEDS: LACTATED RINGERS 1,000 ML IV SCH ×4 (07:08→22:00)
[2019-05-24 07:15] VITALS: BMI 31.4
[2019-05-24 07:30] LABS: HCT 37.2 % (34.0-46.0); HGB 11.9 gm/dL (11.4-16.0); MCHC 32.1 g/dL (31.0-37.0); MCV 90.5 fL (80.0-100.0); Mean Platelet Volume 7.3; Platelet Count 240 k/uL (150-450); RBC 4.11 m/uL (3.80-5.40); RDW 13.3 % (11.5-15.5)
[2019-05-24 07:46] LABS: Eosinophils # (M) 0.18 k/uL (0-0.7); Lymphocytes # (M) 1.89 k/uL (1.0-4.8); Monocytes # (M) 1.08 k/uL (0-1.0); Myelocytes # (M) 0.09 k/uL (0); Myelocytes % 1 %; Neutrophils % (M) 64 %; Nucleated Red Blood Cells 0 /100 WBC (0-0); Total Cells Counted 100
[2019-05-24] MEDS: BUTORPHANOL 1 MG/ML 1 ML VIAL IV PRN ×2 (09:59→12:15)
[2019-05-24] MEDS ORDERED: ROPIVACAINE 5MG/ML 20ML VIAL ONE (14:12)
[2019-05-24] MEDS ORDERED: SODIUM CHLORIDE 0.9% 100 ML BAG ONE (14:12)
[2019-05-24] MEDS ORDERED: fentaNYL (PF) 50 MCG/ML 5 ML AMP ONE (14:12)
[2019-05-24] MEDS ORDERED: HYDROcodone/APAP 5-325MG 1 EACH TAB PO PRN (23:03)
[2019-05-24] MEDS ORDERED: HYDROCORTISONE 2.5% RECTAL CREAM 30 GM TUBE RECTAL PRN (23:03)
[2019-05-24] MEDS ORDERED: SIMETHICONE 80 MG CHEWABLE PO PRN (23:03)
[2019-05-24] MEDS ORDERED: diphenhydrAMINE 50 MG/ML 1 ML VIAL IVP PRN ×2 (23:03)
[2019-05-24] MEDS ORDERED: BENZOCAINE/MENTHOL SPRAY 1 GM/SPRAY AEROSOL TOPICAL PRN (23:03)
[2019-05-24] MEDS ORDERED: ACETAMINOPHEN TAB 325 MG TAB PO PRN (23:03)
[2019-05-24] MEDS ORDERED: ZOLPIDEM 5 MG TAB PO PRN (23:03)
[2019-05-24] MEDS ORDERED: diphenhydrAMINE 50 MG CAP PO PRN (23:03)
[2019-05-24] MEDS ORDERED: LANOLIN CREAM 5 GM TUBE TOPICAL PRN (23:03)
[2019-05-24] MEDS ORDERED: diphenhydrAMINE 25 MG CAP PO PRN (23:03)
[2019-05-24] MEDS ORDERED: WITCH HAZEL 1 EACH MED..PAD TOPICAL PRN (23:03)
--- NOTE | 2019-05-24 23:09 | P.HPOB ---
History of Present Illness H&P Date: 05/24/19 Chief Complaint: Intrauterine at term: Induction of labor: Greg Salazar is a 23-year-old with history of ectopic who is 39 weeks who arrives for induction of labor. Her Precis course has been, K by polyhydramnios that was noted over the latter month and a half to 2 months of the . She was evaluated and torch titers were done. She was followed very closely with twice weekly nonstress test and this morning she is dilated to 1-2 cm artificial rupture membranes was performed and clear fluid is noted. heart tones show a category 1 tracing area she also had anemia during the and was started on iron tablets. Pertinent labs include O+ blood type Rh and it was negative, rubella immune, E surface antigen and RPR were both negative. Group B strep was also negative. Pitocin augmentation of labor has been initiated and plan for epidural is made. Past Medical History Past Medical History: Asthma History of Any Multi-Drug Resistant Organisms: None Reported Past Surgical History: Hernia Repair Additional Past Surgical History / Comment(s): Ectopic , D&C, Past Anesthesia/Blood Transfusion Reactions: No Reported Reaction Past Psychological History: Anxiety, Depression Smoking Status: Current some day smoker Past Alcohol Use History: None Reported Past Drug Use History: None Reported, Marijuana - Past Family History Father Family Medical History: Hypertension Medications and Allergies Home Medications Medication Instructions Recorded Confirmed Type Zgc-Eifi-Folpi Acid 1 cap PO DAILY 10/26/18 05/24/19 History [-U Capsule (formulary)] Ferrous Sulfate [Slow Release Iron] 45 mg PO DAILY 05/24/19 05/24/19 History Ranitidine HCl [Zantac] 150 mg PO DAILY 05/24/19 05/24/19 History Allergies Allergy/AdvReac Type Severity Reaction Status Date / Time No Known Allergies Allergy Verified 05/24/19 06:52 Exam Osteopathic Statement: *. No significant issues noted on an osteopathic structural exam other than those noted in the History and Physical/Consult. Vital Signs Temp Pulse Resp BP Pulse Ox 05/24/19 07:09 97.8 F 81 16 108/76 96 Intake and Output 05/24/19 05/24/19 05/25/19 14:59 22:59 06:59 Other: # Voids 6 - OBG Physical Exam Breast: both: normal (no masses) Abdomen: bowel sounds normal, no diffuse tenderness, no bruit present, no guarding noted, no hepatomegaly, no splenomegaly, no mass Vulva: both: normal Vagina: normal moisture, no discharge Cervix: no lesion, no discharge Uterus: normal size, normal contour Adnexa: both: normal Anus/Rectum: normal perianal skin, no rectal mass, no hemorrhoids, heme negative Results Result Diagrams: 05/24/19 07:00 Abnormal Lab Results - Last 24 Hours (Table) 05/24/19 Range/Units 07:00 Monocytes # (Manual) 1.08 H (0-1.0) k/uL Myelocytes # (Manual) 0.09 H (0) k/uL
--- NOTE | 2019-05-24 23:10 | P.PROBDLV ---
Vaginal Delivery Note - . Vaginal Delivery Note: Patient progressed complete and pushed with spontaneous vaginal delivery of a viable male over an in tact perineum. Following delivery of the head anterior posterior shoulders were easily delivered with gentle downward upper traction from left occiput anterior position. Baby appeared to be somewhat asynclitic but as she was able to push past that baby easily delivered. Once baby was delivered mouth nares were bulb suctioned and baby was placed on mother's abdomen where the umbilical cord was allowed to pulsate for 30 seconds prior to clamping cutting. Placenta was then delivered intact and Pitocin was added to the IV. scores and weight are pending. Both mother and baby are stable following delivery. She had bilateral periurethral avulsion's but as they were not bleeding she did not want them repaired. She will use dermoplasty spray as needed.
[2019-05-24] MEDS ORDERED: OXYTOCIN 20 UNITS/1000 ML NS 1,000 ML IV SCH (23:15)
[2019-05-24] MEDS: IBUPROFEN 600 MG TAB PO PRN (23:40)
--- NOTE | 2019-05-25 07:17 | P.PNOBGVD ---
Subjective - Subjective Principal diagnosis: day 1 Interval history: Overall stairs doing well. She is involuting, voiding and tolerating her diet. She voices no complaints. Vital signs are stable and afebrile. Patient reports: Reports appetite normal, Reports voiding normally, Reports pain well controlled, Reports ambulating normally [place]: doing well Objective - Latest Vital Signs Latest vital signs: Vital Signs Temp Pulse Resp BP 05/25/19 05:45 98.3 F 107 H 16 103/50 05/25/19 01:47 98.7 F 88 16 117/69 05/25/19 01:15 97.9 F 97 16 116/60 05/25/19 00:45 98.0 F 98 16 123/61 05/25/19 00:15 114 H 16 118/66 05/25/19 00:00 98.4 F 88 16 122/64 05/24/19 23:45 99 16 113/67 05/24/19 23:30 98.4 F 104 H 16 120/68 05/24/19 23:15 98.4 F 101 H 16 117/69 05/24/19 23:00 98.4 F 99 16 115/69 Intake and Output 05/24/19 05/25/19 05/25/19 22:59 06:59 14:59 Output Total 400 Balance -400 Output: Estimated Blood Loss 400 Other: # Voids 2 - Exam Lungs: bilateral: normal Chest: Normal S1, Normal S2 Extremities: Present: normal Abdomen: Present: normal appearance, soft Uterus: Present: normal, firm - Labs Labs: Abnormal Lab Results - Last 24 Hours (Table) 05/24/19 Range/Units 07:00 Monocytes # (Manual) 1.08 H (0-1.0) k/uL Myelocytes # (Manual) 0.09 H (0) k/uL
[2019-05-25 07:42] LABS: Basophils # (A) 0.1 k/uL (0-0.2); Basophils % (A) 0 %; Eosinophils % (A) 0 %; HCT 33.5 % (34.0-46.0); HGB 11.4 gm/dL (11.4-16.0); Lymphocytes # (A) 1.5 k/uL (1.0-4.8); Lymphocytes % (A) 9 %; MCH 30.5 pg (25.0-35.0); MCHC 34.1 g/dL (31.0-37.0); MCV 89.6 fL (80.0-100.0); Mean Platelet Volume 6.7; Monocytes # (A) 1.6 k/uL (0-1.0); Monocytes % (A) 9 %; Neutrophils # (A) 13.5 k/uL (1.3-7.7); Neutrophils % (A) 78 %; Platelet Count 225 k/uL (150-450); RBC 3.74 m/uL (3.80-5.40); RDW 12.8 % (11.5-15.5); WBC 17.4 k/uL (3.8-10.6)
[2019-05-25] MEDS: SENNOSIDES-DOCUSATE SODIUM 1 EACH TAB PO SCH ×3 (08:27→20:44)
[2019-05-25] MEDS: IBUPROFEN 600 MG TAB PO PRN ×2 (15:33→20:44)
[2019-05-26] MEDS: IBUPROFEN 600 MG TAB PO PRN (08:07)
[2019-05-26] MEDS: SENNOSIDES-DOCUSATE SODIUM 1 EACH TAB PO SCH (08:07)
--- NOTE | 2019-05-26 08:33 | P.DS ---
Providers Date of admission: 05/24/19 06:46 Expected date of discharge: 05/26/19 Attending physician: Jovani Wall Primary care physician: Stated None Hospital Course: Cecilia is doing very well day 2. She is involuting, voiding and tolerating her diet. She voices no complaints. Vital signs are stable and afebrile. Heart regular, lungs clear, extremities without pain. Abdomen is soft uterus is firm and lochia is reported to be light. Assessment day 2. Plan discharged home follow up with me in 6 weeks. Prescription for Motrin and prepped Pepcid are provided and all of the questions are answered for her prior to her discharge. She is stable for discharge this time. Patient Condition at Discharge: Good Plan - Discharge Summary New Discharge Prescriptions: New Ibuprofen [Motrin] 600 mg PO Q6HR PRN #30 tab PRN Reason: Pain Famotidine [Pepcid AC] 10 mg PO DAILY #30 tablet No Action Irw-Aqfu-Alglq Acid [-U Capsule (formulary)] 1 cap PO DAILY Ranitidine HCl [Zantac] 150 mg PO DAILY Ferrous Sulfate [Slow Release Iron] 45 mg PO DAILY Discharge Medication List Rtk-Vxut-Gjdhx Acid [-U Capsule (formulary)] 1 cap PO DAILY 10/26/18 [History] Ferrous Sulfate [Slow Release Iron] 45 mg PO DAILY 05/24/19 [History] Ranitidine HCl [Zantac] 150 mg PO DAILY 05/24/19 [History] Famotidine [Pepcid AC] 10 mg PO DAILY #30 tablet 05/26/19 [Rx] Ibuprofen [Motrin] 600 mg PO Q6HR PRN #30 tab 05/26/19 [Rx] Follow up Appointment(s)/Referral(s): Jovani Wall DO [Doctor of Osteopathic Medicine] - 1 Week Activity/Diet/Wound Care/Special Instructions: No heavy lifting, limit stairs and driving, and pelvic rest. If any high temperatures, heavy bleeding, or severe pain call my office Discharge Disposition: HOME SELF-CARE
[2019-05-26 10:14] VITALS: BP 126/80; PULSE 84; RESP 18; TEMP 98.2
[2019-05-26] MEDS ORDERED: INFLUENZA VACCINE (6 MOS+) 60 MCG/0.5 ML SYRINGE IM ONE (13:22)
== END 2019-05-26 15:44 | disposition home or self-care (01) | DRG 807 ==
LOC: 4FBP 06:46
PROVIDERS: ADMIT Obstetrics & Gynecology; ATTEND Obstetrics & Gynecology
PROC: 10E0XZZ Delivery of Products of Conception, External Approach (ICD-10-PCS; principal; 2019-05-24)
PROC: 00HU33Z Insertion of Infusion Device into Spinal Canal, Percutaneous Approach (ICD-10-PCS; 2019-05-24)
PROC: 3E0R3BZ Introduction of Anesthetic Agent into Spinal Canal, Percutaneous Approach (ICD-10-PCS; 2019-05-24)
PROC: 3E033VJ Introduction of Other Hormone into Peripheral Vein, Percutaneous Approach (ICD-10-PCS; 2019-05-24)
PROC: 10907ZC Drainage of Amniotic Fluid, Therapeutic from Products of Conception, Via Natural or Artificial Opening (ICD-10-PCS; 2019-05-24)
PROC: 3E02340 Introduction of Influenza Vaccine into Muscle, Percutaneous Approach (ICD-10-PCS; 2019-05-26)
DX: O40.3XX0 Polyhydramnios, third trimester, not applicable or unspecified (principal); Z37.0 Single live birth; O71.82 Other specified trauma to perineum and vulva; Z3A.39 39 weeks gestation of pregnancy; J45.909 Unspecified asthma, uncomplicated; O99.519 Diseases of the respiratory system complicating pregnancy, unspecified trimester; O99.619 Diseases of the digestive system complicating pregnancy, unspecified trimester; K21.9 Gastro-esophageal reflux disease without esophagitis; O99.019 Anemia complicating pregnancy, unspecified trimester; D64.9 Anemia, unspecified; O99.334 Smoking (tobacco) complicating childbirth; F17.200 Nicotine dependence, unspecified, uncomplicated; Z23 Encounter for immunization; Z79.899 Other long term (current) drug therapy; Z86.59 Personal history of other mental and behavioral disorders; Z82.49 Family history of ischemic heart disease and other diseases of the circulatory system
CPT/HCPCS: 85025; 86850; 86900; 86901; 88307

== ENCOUNTER 2019-09-11 04:30 | Emergency (ER) | payer OTHER ==
--- NOTE | 2019-09-11 05:08 | ED ---
Nausea/Vomiting/Diarrhea HPI - General Chief complaint: Nausea/Vomiting/Diarrhea Stated complaint: vomiting Time Seen by Provider: 09/11/19 04:42 Source: patient Mode of arrival: ambulatory Limitations: no limitations - History of Present Illness Initial comments: This patient is a 24-year-old woman who presents with the concern that she is becoming dehydrated. The patient states she was in usual state of health until yesterday in the morning when she started having soft bowel movements, which then became watery. Starting around 4 in the afternoon she began to have vomiting. She states that now she feels like there is nothing left to vomit. She is not really having abdominal pain states that only sometimes with severe retching will she have any epigastric pain. MD complaint: nausea, vomiting, diarrhea Onset/Timin -: days(s) Description of Vomiting: food contents Description of Diarrhea: water Associated Abdominal Pain: No Improves with: none Worsens with: none Context: possible food poisoning Associated Symptoms: nausea/vomiting - Related Data Home Medications Medication Instructions Recorded Confirmed Ulo-Glbs-Zhgxw Acid 1 cap PO DAILY 10/26/18 05/24/19 [-U Capsule (formulary)] Ferrous Sulfate [Slow Release Iron] 45 mg PO DAILY 05/24/19 05/24/19 Ranitidine HCl [Zantac] 150 mg PO DAILY 05/24/19 05/24/19 Previous Rx's Medication Instructions Recorded Famotidine [Pepcid AC] 10 mg PO DAILY #30 tablet 05/26/19 Ibuprofen [Motrin] 600 mg PO Q6HR PRN #30 tab 05/26/19 Ondansetron Odt [Zofran ODT] 4 mg PO Q8HR PRN #10 tab 09/11/19 Allergies Allergy/AdvReac Type Severity Reaction Status Date / Time No Known Allergies Allergy Verified 09/11/19 04:40 Review of Systems ROS Statement: Those systems with pertinent positive or pertinent negative responses have been documented in the HPI. ROS Other: All systems not noted in ROS Statement are negative. Constitutional: Denies: fever, chills Respiratory: Denies: cough, dyspnea Cardiovascular: Denies: chest pain, palpitations Gastrointestinal: Reports: nausea, vomiting, diarrhea. Denies: abdominal pain, hematemesis, melena, hematochezia Genitourinary: Denies: dysuria, hematuria, abnormal menses Musculoskeletal: Denies: back pain Skin: Denies: rash Neurological: Denies: headache, weakness, numbness Past Medical History Past Medical History: Asthma History of Any Multi-Drug Resistant Organisms: None Reported Past Surgical History: Hernia Repair Additional Past Surgical History / Comment(s): Ectopic , D&C, Past Anesthesia/Blood Transfusion Reactions: No Reported Reaction Past Psychological History: Anxiety, Depression Smoking Status: Former smoker Past Alcohol Use History: None Reported Past Drug Use History: None Reported, Marijuana - Past Family History Father Family Medical History: Hypertension General Exam Limitations: no limitations General appearance: alert, in no apparent distress Head exam: Present: atraumatic, normocephalic Eye exam: Present: normal appearance. Absent: scleral icterus, conjunctival injection ENT exam: Present: mucous membranes dry Respiratory exam: Present: normal lung sounds bilaterally. Absent: respiratory distress, wheezes, rales, rhonchi, stridor Cardiovascular Exam: Present: regular rate, normal rhythm, normal heart sounds. Absent: systolic murmur, diastolic murmur, rubs, gallop GI/Abdominal exam: Present: soft. Absent: distended, tenderness, guarding, rebound, rigid, mass, pulsatile mass, hernia Extremities exam: Present: normal inspection, normal capillary refill. Absent: pedal edema, calf tenderness Back exam: Present: normal inspection. Absent: CVA tenderness (R), CVA tenderness (L) Neurological exam: Present: alert Skin exam: Present: warm, dry, intact, normal color. Absent: rash Course Vital Signs 09/11/19 04:36 Temperature 98 F Pulse Rate 108 H Respiratory 20 Rate Blood Pressure 99/61 O2 Sat by Pulse 98 Oximetry Medical Decision Making - Lab Data Result diagrams: 09/11/19 05:16 09/11/19 05:16 Lab Results 09/11/19 09/11/19 09/11/19 Range/Units 05:16 05:16 05:29 WBC 16.3 H (3.8-10.6) k/uL RBC 5.48 H (3.80-5.40) m/uL Hgb 15.4 (11.4-16.0) gm/dL Hct 46.6 H (34.0-46.0) % MCV 85.1 (80.0-100.0) fL MCH 28.1 (25.0-35.0) pg MCHC 33.0 (31.0-37.0) g/dL RDW 12.8 (11.5-15.5) % Plt Count 382 (150-450) k/uL Neutrophils % 88 % Lymphocytes % 2 % Monocytes % 6 % Eosinophils % 1 % Basophils % 1 % Neutrophils # 14.4 H (1.3-7.7) k/uL Lymphocytes # 0.4 L (1.0-4.8) k/uL Monocytes # 1.1 H (0-1.0) k/uL Eosinophils # 0.1 (0-0.7) k/uL Basophils # 0.1 (0-0.2) k/uL Sodium 139 (137-145) mmol/L Potassium 4.1 (3.5-5.1) mmol/L Chloride 109 H (98-107) mmol/L Carbon Dioxide 18 L (22-30) mmol/L Anion Gap 12 mmol/L BUN 16 (7-17) mg/dL Creatinine 0.69 (0.52-1.04) mg/dL Est GFR (CKD-EPI)AfAm >90 (>60 ml/min/1.73 sqM) Est GFR (CKD-EPI)NonAf >90 (>60 ml/min/1.73 sqM) Glucose 141 H (74-99) mg/dL Calcium 9.8 (8.4-10.2) mg/dL Total Bilirubin 0.8 (0.2-1.3) mg/dL AST 25 (14-36) U/L ALT 18 (4-34) U/L Alkaline Phosphatase 83 (38-126) U/L Total Protein 8.4 H (6.3-8.2) g/dL Albumin 4.9 (3.5-5.0) g/dL Amylase 90 (30-110) U/L Lipase 83 (23-300) U/L Urine Color Urine Appearance (Clear) Urine pH (5.0-8.0) Ur Specific [place] (1.001-1.035) Urine Protein (Negative) Urine Glucose (UA) (Negative) Urine Ketones (Negative) Urine Blood (Negative) Urine Nitrite (Negative) Urine Bilirubin (Negative) Urine Urobilinogen (<2.0) mg/dL Ur Leukocyte Esterase (Negative) Urine WBC (0-5) /hpf Ur Squamous Epith Cells (0-4) /hpf Urine Mucus (None) /hpf Urine HCG, Qual Not Detected (Not Detectd) 09/11/19 Range/Units 05:29 WBC (3.8-10.6) k/uL RBC (3.80-5.40) m/uL Hgb (11.4-16.0) gm/dL Hct (34.0-46.0) % MCV (80.0-100.0) fL MCH (25.0-35.0) pg MCHC (31.0-37.0) g/dL RDW (11.5-15.5) % Plt Count (150-450) k/uL Neutrophils % % Lymphocytes % % Monocytes % % Eosinophils % % Basophils % % Neutrophils # (1.3-7.7) k/uL Lymphocytes # (1.0-4.8) k/uL Monocytes # (0-1.0) k/uL Eosinophils # (0-0.7) k/uL Basophils # (0-0.2) k/uL Sodium (137-145) mmol/L Potassium (3.5-5.1) mmol/L Chloride (98-107) mmol/L Carbon Dioxide (22-30) mmol/L Anion Gap mmol/L BUN (7-17) mg/dL Creatinine (0.52-1.04) mg/dL Est GFR (CKD-EPI)AfAm (>60 ml/min/1.73 sqM) Est GFR (CKD-EPI)NonAf (>60 ml/min/1.73 sqM) Glucose (74-99) mg/dL Calcium (8.4-10.2) mg/dL Total Bilirubin (0.2-1.3) mg/dL AST (14-36) U/L ALT (4-34) U/L Alkaline Phosphatase (38-126) U/L Total Protein (6.3-8.2) g/dL Albumin (3.5-5.0) g/dL Amylase (30-110) U/L Lipase (23-300) U/L Urine Color Yellow Urine Appearance Cloudy H (Clear) Urine pH 6.0 (5.0-8.0) Ur Specific [place] 1.029 (1.001-1.035) Urine Protein 1+ H (Negative) Urine Glucose (UA) Negative (Negative) Urine Ketones 1+ H (Negative) Urine Blood Negative (Negative) Urine Nitrite Negative (Negative) Urine Bilirubin Negative (Negative) Urine Urobilinogen <2.0 (<2.0) mg/dL Ur Leukocyte Esterase Negative (Negative) Urine WBC 4 (0-5) /hpf Ur Squamous Epith Cells 33 H (0-4) /hpf Urine Mucus Many H (None) /hpf Urine HCG, Qual (Not Detectd) Disposition Clinical Impression: Gastroenteritis Disposition: HOME SELF-CARE Condition: Good Instructions (If sedation given, give patient instructions): Gastroenteritis ( DC) Prescriptions: Ondansetron Odt [Zofran ODT] 4 mg PO Q8HR PRN #10 tab PRN Reason: Nausea Is patient prescribed a controlled substance at d/c from ED?: No Referrals: None,Stated [Primary Care Provider] - 1-2 days
[2019-09-11] MEDS ORDERED: ONDANSETRON 4 MG/2 ML VIAL IVP STA (05:18)
[2019-09-11] MEDS ORDERED: SODIUM CHLORIDE 0.9% 1,000 ML IV ONE (05:18)
[2019-09-11 05:27] LABS: Basophils # (A) 0.1 k/uL (0-0.2); Basophils % (A) 1 %; Eosinophils # (A) 0.1 k/uL (0-0.7); Eosinophils % (A) 1 %; HCT 46.6 % (34.0-46.0); HGB 15.4 gm/dL (11.4-16.0); Lymphocytes # (A) 0.4 k/uL (1.0-4.8); Lymphocytes % (A) 2 %; MCH 28.1 pg (25.0-35.0); MCV 85.1 fL (80.0-100.0); Mean Platelet Volume 7.4; Monocytes # (A) 1.1 k/uL (0-1.0); Monocytes % (A) 6 %; Neutrophils # (A) 14.4 k/uL (1.3-7.7); Neutrophils % (A) 88 %; Platelet Count 382 k/uL (150-450); RBC 5.48 m/uL (3.80-5.40); RDW 12.8 % (11.5-15.5); WBC 16.3 k/uL (3.8-10.6)
[2019-09-11 05:39] LABS: ALT 18 U/L (4-34); AST 25 U/L (14-36); African American GFR (CKD) >90 (>60 ml/min/1.73 sqM); Albumin 4.9 g/dL (3.5-5.0); Alkaline Phosphatase 83 U/L (38-126); Amylase 90 U/L (30-110); Anion Gap 12 mmol/L; Blood Urea Nitrogen 16 mg/dL (7-17); Calcium 9.8 mg/dL (8.4-10.2); Carbon Dioxide 18 mmol/L (22-30); Chloride 109 mmol/L (98-107); Glucose 141 mg/dL (74-99); Non-African American GFR(CKD) >90 (>60 ml/min/1.73 sqM); Potassium 4.1 mmol/L (3.5-5.1); Sodium 139 mmol/L (137-145); Total Bilirubin 0.8 mg/dL (0.2-1.3); Total Protein 8.4 g/dL (6.3-8.2)
[2019-09-11 05:41] LABS: Appearance,Urine Cloudy (Clear); Bilirubin,Urine Negative (Negative); Blood,Urine Negative (Negative); Color,Urine Yellow; Glucose,Urine (UA) Negative (Negative); Ketones,Urine 1+ (Negative); Leukocyte Esterase,Urine Negative (Negative); Mucus,Urine Many /hpf; Nitrite,Urine Negative (Negative); Protein,Urine 1+ (Negative); Specific Gravity,Urine 1.029 (1.001-1.035); Squamous Epithelial Cell,Urine 33 /hpf (0-4); Urobilinogen,Urine <2.0 mg/dL (<2.0); WBC,Urine 4 /hpf (0-5)
[2019-09-11 07:03] VITALS: BP 97/69; PULSE 79; RESP 18; TEMP 98.6
== END 2019-09-11 07:03 | disposition home or self-care (01) ==
LOC: EC 04:30
DX: K52.9 Noninfective gastroenteritis and colitis, unspecified (principal); Z87.891 Personal history of nicotine dependence; Z79.899 Other long term (current) drug therapy
CPT/HCPCS: 36415; 80053; 82150; 83690; 85025; 81001; 81025; 99284; 96374; 96361 ×2; J2405

== ENCOUNTER 2019-09-15 12:33 | Emergency (ER) | payer OTHER ==
[2019-09-15 12:39] VITALS: TEMP 98.3
[2019-09-15] MEDS ORDERED: IBUPROFEN 600 MG TAB PO STA (13:10)
[2019-09-15 13:43] LABS: Appearance,Urine Cloudy (Clear); Bilirubin,Urine Negative (Negative); Blood,Urine Negative (Negative); Color,Urine Yellow; Glucose,Urine (UA) Negative (Negative); Ketones,Urine Trace (Negative); Leukocyte Esterase,Urine Negative (Negative); Mucus,Urine Many /hpf; Nitrite,Urine Negative (Negative); PH, Urine 6.5 (5.0-8.0); Protein,Urine Trace (Negative); RBC,Urine <1 /hpf (0-5); Specific Gravity,Urine 1.023 (1.001-1.035); Squamous Epithelial Cell,Urine 11 /hpf (0-4); Urobilinogen,Urine <2.0 mg/dL (<2.0); WBC,Urine 4 /hpf (0-5)
--- NOTE | 2019-09-15 13:52 | ED ---
Abdominal Pain HPI - General Chief Complaint: Abdominal Pain Stated Complaint: abd pain/blood in stool Time Seen by Provider: 09/15/19 12:52 Source: patient Mode of arrival: ambulatory Limitations: no limitations - History of Present Illness Initial Comments: Patient is a 24-year-old female presenting to emergency Department with complaints of lower abdominal pain as been intermittent since early this morning. She also admits to nausea. She describes the pain as very sharp at times and making her double over. Patient states it is coming and going. Currently it is 5/10 on pain scale. No fever, chills, vomiting, diarrhea. She states she does have intermittent constipation. She had regular bowel movement today and did have a little bit of blood in the toliet after BM. She denies . She denies previous abdominal surgeries. She has no other complaints at this time. Upon arrival to the ER, her vital signs are stable. - Related Data Home Medications Medication Instructions Recorded Confirmed Wju-Uavs-Kgrkk Acid 1 cap PO DAILY 10/26/18 05/24/19 [-U Capsule (formulary)] Ferrous Sulfate [Slow Release Iron] 45 mg PO DAILY 05/24/19 05/24/19 Ranitidine HCl [Zantac] 150 mg PO DAILY 05/24/19 05/24/19 Previous Rx's Medication Instructions Recorded Famotidine [Pepcid AC] 10 mg PO DAILY #30 tablet 05/26/19 Ibuprofen [Motrin] 600 mg PO Q6HR PRN #30 tab 05/26/19 Ondansetron Odt [Zofran ODT] 4 mg PO Q8HR PRN #10 tab 09/11/19 Allergies Allergy/AdvReac Type Severity Reaction Status Date / Time No Known Allergies Allergy Verified 09/15/19 12:39 Review of Systems ROS Statement: Those systems with pertinent positive or pertinent negative responses have been documented in the HPI. ROS Other: All systems not noted in ROS Statement are negative. Past Medical History Past Medical History: Asthma History of Any Multi-Drug Resistant Organisms: None Reported Past Surgical History: Hernia Repair Additional Past Surgical History / Comment(s): Ectopic , D&C, Past Anesthesia/Blood Transfusion Reactions: No Reported Reaction Past Psychological History: Anxiety, Depression Smoking Status: Former smoker Past Alcohol Use History: None Reported Past Drug Use History: Marijuana - Past Family History Father Family Medical History: Hypertension General Exam - General Exam Comments Initial Comments: GENERAL: Well-appearing, well-nourished and in no acute distress. HEAD: Atraumatic, normocephalic. EYES: Pupils equal round and reactive to light, extraocular movements intact, sclera anicteric, conjunctiva are normal. ENT: TMs normal, nares patent, oropharynx clear without exudates. Moist mucous membranes. NECK: Normal range of motion, supple without lymphadenopathy or JVD. LUNGS: Breath sounds clear to auscultation bilaterally and equal. No wheezes rales or rhonchi. HEART: Regular rate and rhythm without murmurs, rubs or gallops. ABDOMEN: Suprapubic tenderness . Soft, normoactive bowel sounds. No guarding, no rebound. No masses appreciated. : Deferred, declined. EXTREMITIES: Normal range of motion, no pitting or edema. No clubbing or cyanosis. NEUROLOGICAL: Normal speech, normal gait. PSYCH: Normal mood, normal affect. SKIN: Warm, Dry, normal turgor, no rashes or lesions noted. Limitations: no limitations Course Vital Signs 09/15/19 12:37 Temperature 98.3 F Pulse Rate 65 Respiratory 20 Rate Blood Pressure 109/67 O2 Sat by Pulse 97 Oximetry Medical Decision Making - Medical Decision Making Patient is a 24-year-old female presenting with suprapubic pain since this morning. Mild nausea. No fevers. Vitals are stable. Urine is normal, not . Ultrasound reveals a probable hemorrhagic right ovarian cyst. No other acute abnormalities. I recommend follow-up with pt's OBGYN in 2-3 menstrual cycles to reevaluate the cyst. I recommended vaginal exam and rectal exam were patient declined at this time. We discussed that her minor bleeding with bowel movement is most likely due to her constipation. Patient is stable for discharge at this time. She will continue with Motrin or Aleve for pain. Return parameters were discussed with the patient she verbalized understanding. Case discussed with Dr. Coello. - Lab Data Lab Results 09/15/19 09/15/19 Range/Units 13:15 13:15 Urine Color Yellow Urine Appearance Cloudy H (Clear) Urine pH 6.5 (5.0-8.0) Ur Specific [place] 1.023 (1.001-1.035) Urine Protein Trace H (Negative) Urine Glucose (UA) Negative (Negative) Urine Ketones Trace H (Negative) Urine Blood Negative (Negative) Urine Nitrite Negative (Negative) Urine Bilirubin Negative (Negative) Urine Urobilinogen <2.0 (<2.0) mg/dL Ur Leukocyte Esterase Negative (Negative) Urine RBC <1 (0-5) /hpf Urine WBC 4 (0-5) /hpf Ur Squamous Epith Cells 11 H (0-4) /hpf Urine Mucus Many H (None) /hpf Urine HCG, Qual Not Detected (Not Detectd) Disposition Clinical Impression: Suprapubic abdominal pain, Hemorrhagic cyst of right ovary, Constipation Disposition: HOME SELF-CARE Condition: Stable Instructions (If sedation given, give patient instructions): Ovarian Cyst (ED) Additional Instructions: Please return to the Emergency Department if symptoms worsen or any other concerns. Follow-up with [facility] as discussed. Trial of MiraLAX for constipation. Continue to take Motrin or Aleve for pain. Is patient prescribed a controlled substance at d/c from ED?: No Referrals: None,Stated [Primary Care Provider] - 1-2 days
--- NOTE | 2019-09-15 15:07 | US ---
EXAMINATION TYPE: US transvaginal DATE OF EXAM: 09/15/2019 COMPARISON: NONE CLINICAL HISTORY: pain. stabbing abd pain with rectal bleeding today, no vaginal complaints, TECHNIQUE: TV. Transvaginal sonographic images Date of LMP: 09/04/2019 EXAM MEASUREMENTS: Uterus: 8.5 x 5.4 x 4.1 cm Endometrial Stripe: 0.8 cm Right Ovary: 2.9 x 2.1 x 1.7 cm Left Ovary: 3.1 x 1.9 x 1.7 cm 1. Uterus: Anteverted wnl 2. Endometrium: wnl 3. Right Ovary: 1.5 x 1.6 x 1.3cm complex lesion noted within ovary, likely an involuting hemorrhagi c cyst 4. Left Ovary: wnl Spectral, color and waveform doppler imaging shows good arterial and venous flow within the ovaries ; there is no evidence for ovarian torsion. 5. Bilateral Adnexa: wnl 6. Posterior cul-de-sac: mild free fluid IMPRESSION: Probable involuting hemorrhagic right ovarian cyst. Ensure negative beta-hCG to exclude e ctopic . Follow-up in 3 menstrual cycles could be considered to ensure resolution. Small henry unt of free fluid in the posterior cul-de-sac is typically physiologic in nature.
[2019-09-15 15:30] VITALS: BP 136/74; PULSE 88; RESP 18
== END 2019-09-15 15:29 | disposition home or self-care (01) ==
LOC: EC 12:33
DX: N83.201 Unspecified ovarian cyst, right side (principal); K59.00 Constipation, unspecified; Z79.899 Other long term (current) drug therapy; Z87.891 Personal history of nicotine dependence; Z98.890 Other specified postprocedural states
CPT/HCPCS: 76830; 81001; 81025; 93975; 99284

== ENCOUNTER → 2020-03-29 | Outpatient (CLI) | payer OTHER ==
--- NOTE | 2020-03-29 13:29 | US ---
EXAMINATION TYPE: Transabdominal DATE OF EXAM: 03/29/2020 1:11 PM COMPARISON: NONE CLINICAL HISTORY: Z36 Confirm dates. Confirm Dates EXAM PERFORMED: Transabdominal (TA) EXAM MEASUREMENTS: GESTATIONAL AGE / DATING Physician Established: Not yet established Dates by LMP: (11 weeks/2 days) EDC: 10/16/2020 Dates by First Scan: No prior Dates by Current Scan for: (11 weeks/1 days) EDC: 10/17/2020 MATERNAL ANATOMY Uterus: 11.8 x 6.4 x 7.6 cm Right Ovary: 2.7 x 1.2 x 2.1 cm Left Ovary: 2.2 x 1.2 x 2.2 cm Post CDS / Adnexa: wnl Presence of free fluid: wnl GESTATION / SURVEY CRL: 4.2 cm (11 weeks/1 days) MSD: wnl Yolk Sac (normal less than 6mm): 4mm Heart Rate: 160 bpm Rhythm: Normal IUP: Viable IUP Date of LMP: 01/10/2020 IMPRESSION: Single, viable IUP/ No abnormality visualized at this time
== END | disposition home or self-care (01) ==
LOC: RADUSWWP 12:57
PROVIDERS: ATTEND Obstetrics & Gynecology
DX: Z36.9 Encounter for antenatal screening, unspecified (principal); Z3A.11 11 weeks gestation of pregnancy
CPT/HCPCS: 76801

== ENCOUNTER 2020-08-31 12:39 | Outpatient (CLI) | payer OTHER ==
[2020-08-31] MEDS ORDERED: LACTATED RINGERS 1,000 ML IV SCH (14:15)
[2020-08-31 14:18] LABS: Appearance,Urine Clear (Clear); Bilirubin,Urine Negative (Negative); Blood,Urine Negative (Negative); Color,Urine Light Yellow; Glucose,Urine (UA) Negative (Negative); Ketones,Urine Negative (Negative); Leukocyte Esterase,Urine Negative (Negative); Nitrite,Urine Negative (Negative); PH, Urine 6.5 (5.0-8.0); Protein,Urine Negative (Negative); Specific Gravity,Urine 1.009 (1.001-1.035); Urobilinogen,Urine <2.0 mg/dL (<2.0)
[2020-08-31 14:22] VITALS: BP 104/63; PULSE 121; RESP 17; TEMP 98
[2020-08-31 14:29] LABS: Amphetamine Screen,Urine Not Detected (NotDetected); Barbiturate Screen,Urine Not Detected (NotDetected); Benzodiazepines Screen,Urine Not Detected (NotDetected); Cocaine Screen,Urine Not Detected (NotDetected); Methadone Screen, Urine Not Detected (NotDetected); Opiate Screen,Urine Not Detected (NotDetected); Oxycodone Screen, Urine Not Detected (NotDetected); Phencyclidine Screen,Urine Not Detected (NotDetected); Tricyclic Antidepressant,Urine Not Detected (NotDetected); Urn Cannabinoid Scrn Detected (NotDetected)
[2020-08-31 14:30] LABS: ALT 18 U/L (4-34); AST 24 U/L (14-36); African American GFR (CKD) >90 (>60 ml/min/1.73 sqM); Albumin 3.7 g/dL (3.5-5.0); Alkaline Phosphatase 125 U/L (38-126); Anion Gap 3 mmol/L; Blood Urea Nitrogen 12 mg/dL (7-17); Carbon Dioxide 22 mmol/L (22-30); Chloride 108 mmol/L (98-107); Glucose 88 mg/dL (74-99); Non-African American GFR(CKD) >90 (>60 ml/min/1.73 sqM); Potassium 4.3 mmol/L (3.5-5.1); Sodium 133 mmol/L (137-145); Total Bilirubin 0.3 mg/dL (0.2-1.3)
[2020-08-31 14:31] LABS: Basophils % (A) 0 %; Eosinophils % (A) 0 %; HCT 36.1 % (34.0-46.0); HGB 12.1 gm/dL (11.4-16.0); Lymphocytes # (A) 1.7 k/uL (1.0-4.8); Lymphocytes % (A) 12 %; MCH 30.7 pg (25.0-35.0); MCHC 33.5 g/dL (31.0-37.0); MCV 91.8 fL (80.0-100.0); Mean Platelet Volume 7.8; Monocytes # (A) 1.2 k/uL (0-1.0); Monocytes % (A) 8 %; Neutrophils # (A) 10.4 k/uL (1.3-7.7); Neutrophils % (A) 75 %; Platelet Count 351 k/uL (150-450); RBC 3.94 m/uL (3.80-5.40); RDW 12.4 % (11.5-15.5); WBC 13.9 k/uL (3.8-10.6)
--- NOTE | 2020-08-31 15:20 | US ---
EXAMINATION TYPE: US OB >= 14 wk fetus DATE OF EXAM: 08/31/2020 COMPARISON: Early OB CLINICAL HISTORY: abd pain Pt states cramping TECHNIQUE: Transabdominal (TA) GESTATIONAL AGE / DATING Physician Established: (33 weeks/3 days) EDC: 10/16/2020 Dates by First Scan: (33 weeks/2 days) EDC: 10/17/2020 Dates by Current Scan: (32 weeks/6 days) EDC: 10/20/2020 SURVEY IUP: Single PLACENTA: Anterior PREVIA: No Previa JAMI: 15.3 cm Normal CERVICAL LENGTH (transabdominal: norm > 3.0cm): 3.2 cm BIOMETRY PRESENTATION: Vertex BPD: 8.4 cm 33 weeks / 6 days HC: 30.6 cm 34 weeks / 1 days AC: 27.8 cm 32 weeks / 0 days FL: 6.0 cm 31 weeks / 3 days ESTIMATED WEIGHT IN GRAMS: 1903 grams ESTIMATED WEIGHT IN LBS/OZ: 4 lbs. 3 oz. WEIGHT PERCENTAGE BASED ON ESTABLISHED DATES: 11% HC/AC: 1.10 Normal FL/AC: 22 Normal HEART RATE: 130 bpm RHYTHM: Normal Single viable IUP, No abnormality visualized to account for pt's symptoms Results given to L&D at time of exam IMPRESSION: 1. Single intrauterine gestation estimated at 32 weeks 6 days gestation based on current ultrasound m easurements. 2. heart rate measures 130 bpm. 3. Estimated weight 1903 g. This is in the 11th percentile.
--- NOTE | 2020-08-31 18:13 | P.MSEPDOC ---
Presenting Problems - Arrival Data Date of Arrival on Unit: 08/31/20 Time of Arrival on Unit: 12:39 Mode of Transport: Portable - Complaint OB-Reason for Admission/Chief Complaint: Other Comment: pt here from home, states she has been constipated last 3 days and took colace. and metamucil, since taking meds she has had 3 episodes of loose stool and lower abd. pain, pt denies contractions, reports + fm, denies lof, denies complications with. , abd soft and non tender Medical History - Information : 3 Para: 1 Term: 1 : 0 Abortions: Spontaneous or Elective: 1 Number of Living Children: 1 - Gestational Age Gestational Age by LENO (wks/days): 33 Weeks and 3 Days Review of Systems - Review of Systems Constitutional: No problems Breast: No problems ENT: No problems Cardiovascular: No problems Respiratory: No problems Gastrointestinal: Constipation, Diarrhea Genitourinary: No problems Musculoskeletal: No problems Neurological: No problems Skin: No problems Comment: pt reports being constipated for 3 days, was instructed to take colace and metamucil and now is having episodes of loose stool today with intense lower abd pain Vital Signs - Temperature Temperature: 98.0 F Temperature Source: Oral - Pulse Right Brachial Pulse Rate: 121 Pulse Assessment Method: Automatic Cuff - Respirations Respiratory Rate: 17 Oxygen Delivery Method: Room Air - Blood Pressure Right Arm Blood Pressure: 104/63 Blood Pressure Mean: 76 Blood Pressure Source: Automatic Cuff Medical Screen Scoring (Pre) - Cervical Exam Dilation: 0 cm = 0 Membranes: Intact - Uterine Contractions Frequency: > 5 minutes apart = 1 Duration: > 40 seconds = 2 Intensity: N/A - Maternal Vital Signs Maternal Temperature: N/A Maternal Blood Pressure: N/A Signs of Preeclampsia: N/A Maternal Respirations: N/A - Maternal Trauma Maternal Trauma: N/A - Assessment - Baby A Baseline FHR: 140 Heart Rate - NICHD Category: Category I (Normal) = 0 NST: Reactive Position: N/A Station: N/A - Total Score - Baby A Total Score - Baby A: 3 - Total Score - Baby B Total Score - Baby B: 3 - Total Score - Baby C Total Score - Baby C: 3 - Level of Risk - Baby A Level of Risk - Baby A: Low (0-5) - Level of Risk - Baby B Level of Risk - Baby B: Low (0-5) - Level of Risk - Baby C Level of Risk - Baby C: Low (0-5) Physician Notification (Pre) - Physician Notified Physician Notified Date: 08/31/20 Physician Notified Time: 13:00 New Order Received: Yes (ultrasound, lab work) - Notification Comment Comment: upon arrival to triage pt heart rate noted in the 120s, after continued monitoring heart rate was noted to be in the 80s Physician Notification (Post) - Physician Notified Physician Notified Date: 08/31/20 Physician Notified Time: 14:45 Physician/Practitioner Notified:: Dr Batista Spoke With: Dr Batista New Order Received: Yes (dc home) Disposition - Disposition OB Disposition: Discharge to home, Written follow up instructions reviewed Discharge Date: 08/31/20 Discharge Time: 15:32 I agree with the RN Medical Screening Exam: Yes Case reviewed; plan agreed upon as documented in EMR&OBIX.: Yes Diagnosis: UNSPECIFIED ABDOMINAL PAIN (Patient presented to labor and delivery with complaints of 2-3 day history of lower abdominal pain and constipation. Apparently she tried multiple agents to have a bowel movement now having crampy low abdominal pain. Patient is having no bleeding and denies contractions. I did check the patient myself and her cervix was not dilated. Ultrasound was ordered which showed no evidence of processes, however the baby was at the 7th percentile and therefore I did leave a note in her office chart so that a subsequent follow-up ultrasound could be done. Blood work was normal. Gave her 1 L of lactated Ringer's and her pain dissipated. Patient's felt be stable for discharge home follow up Dr. Melo early next week. She was given specific instructions to return to labor and delivery or call if she had return of her symptomatology or other concerns.)
== END 2020-08-31 15:32 | disposition home or self-care (01) ==
LOC: FBPOP 12:39
PROVIDERS: ATTEND Obstetrics & Gynecology
DX: O99.891 Other specified diseases and conditions complicating pregnancy (principal); Z3A.33 33 weeks gestation of pregnancy
CPT/HCPCS: 59025; 96360; 80053; 85025; 81003; 80306; 87086; 76805; G0463; 99214

== ENCOUNTER 2020-10-09 05:30 | Inpatient (IN) | payer OTHER ==
[2020-10-09] MEDS ORDERED: LIDOCAINE 0.5% (PF) 5 MG/ML (50 ML SDV) SQ PRN (05:50)
[2020-10-09] MEDS ORDERED: OXYTOCIN 10 UNIT/ML 1 ML VIAL IM PRN (05:50)
[2020-10-09] MEDS ORDERED: TERBUTALINE 1 MG/ML VIAL SQ PRN (05:50)
[2020-10-09] MEDS ORDERED: METHYLERGONOVINE 0.2 MG/ML 1 ML AMP IM PRN (05:50)
[2020-10-09] MEDS ORDERED: CARBOPROST TROMETHAMINE 250 MCG/ML 1 ML AMP IM PRN (05:50)
[2020-10-09 06:19] LABS: Basophils % (A) 0 %; Eosinophils # (A) 0.1 k/uL (0-0.7); Eosinophils % (A) 1 %; HCT 43.6 % (34.0-46.0); Lymphocytes # (A) 2.4 k/uL (1.0-4.8); Lymphocytes % (A) 21 %; MCH 30.6 pg (25.0-35.0); MCHC 34.4 g/dL (31.0-37.0); Mean Platelet Volume 8.3; Monocytes % (A) 9 %; Neutrophils # (A) 7.6 k/uL (1.3-7.7); Neutrophils % (A) 66 %; Platelet Count 282 k/uL (150-450); RDW 12.5 % (11.5-15.5); WBC 11.6 k/uL (3.8-10.6)
[2020-10-09] MEDS ORDERED: SODIUM CHLORIDE 0.9% 100 ML BAG ONE (06:31)
[2020-10-09] MEDS ORDERED: ROPIVACAINE 5MG/ML 20ML VIAL ONE (06:31)
[2020-10-09] MEDS ORDERED: fentaNYL (PF) 50 MCG/ML 5 ML AMP ONE (06:31)
--- NOTE | 2020-10-09 06:40 | P.HPOB ---
History of Present Illness H&P Date: 10/09/20 Chief Complaint: Labor 25 year old presents at 39 weeks in labor. Her cervix is 6/100/-2 and she is sarai every 2-5 minutes. heart tones 135 with moderate norbert iability and reactive. Amniosure positive. Review of Systems All systems: negative Constitutional: Denies chills, Denies fever Eyes: denies blurred vision, denies pain Ears, nose, mouth and throat: Denies headache, Denies sore throat Cardiovascular: Denies chest pain, Denies shortness of breath Respiratory: Denies cough Gastrointestinal: Denies abdominal pain, Denies diarrhea, Denies nausea, Denies vomiting Genitourinary: Denies dysuria, Denies hematuria Musculoskeletal: Denies myalgias Integumentary: Denies pruritus, Denies rash Neurological: Denies numbness, Denies weakness Psychiatric: Denies anxiety, Denies depression Endocrine: Denies fatigue, Denies weight change Past Medical History Past Medical History: Asthma Additional Past Medical History / Comment(s): not using any inhalers History of Any Multi-Drug Resistant Organisms: None Reported Past Surgical History: Hernia Repair Additional Past Surgical History / Comment(s): Ectopic , Past Anesthesia/Blood Transfusion Reactions: No Reported Reaction Past Psychological History: Anxiety, Depression Smoking Status: Former smoker Past Alcohol Use History: None Reported Past Drug Use History: Marijuana - Past Family History Father Family Medical History: Hypertension Medications and Allergies Home Medications Medication Instructions Recorded Confirmed Type Jen-Yrxa-Xepxm Acid 1 cap PO DAILY 10/26/18 10/09/20 History [-U Capsule (formulary)] Allergies Allergy/AdvReac Type Severity Reaction Status Date / Time No Known Allergies Allergy Verified 10/09/20 05:40 Exam Osteopathic Statement: *. No significant issues noted on an osteopathic structural exam other than those noted in the History and Physical/Consult. Vital Signs Temp Pulse Resp BP 10/09/20 06:06 96.6 F L 110 H 20 132/70 Intake and Output 10/08/20 10/08/20 10/09/20 14:59 22:59 06:59 Other: # Voids 0 Weight 62.596 kg Heart: Regular rate and rhythm Lungs: Clear to auscultation bilaterally Abdomen: Soft, nontender Extremities: Negative Homans sign Results Result Diagrams: 10/09/20 05:52 Abnormal Lab Results - Last 24 Hours (Table) 10/09/20 Range/Units 05:52 WBC 11.6 H (3.8-10.6) k/uL Assessment and Plan (1) Normal labor Current Visit: Yes Status: Acute Code(s): O80 - ENCOUNTER FOR FULL-TERM UNCOMPLICATED DELIVERY; Z37.9 - OUTCOME OF DELIVERY, UNSPECIFIED SNOMED Code(s): 02284722 Plan: 1. Admit to family place 2. Epidural for pain management 3. Anticipate normal vaginal delivery
[2020-10-09] MEDS ORDERED: ZOLPIDEM 5 MG TAB PO PRN (11:03)
[2020-10-09] MEDS ORDERED: diphenhydrAMINE 50 MG CAP PO PRN (11:03)
[2020-10-09] MEDS ORDERED: SIMETHICONE 80 MG CHEWABLE PO PRN (11:03)
[2020-10-09] MEDS ORDERED: HYDROCORTISONE 2.5% RECTAL CREAM 30 GM TUBE RECTAL PRN (11:03)
[2020-10-09] MEDS ORDERED: BENZOCAINE/MENTHOL SPRAY 1 GM/SPRAY AEROSOL TOPICAL PRN (11:03)
[2020-10-09] MEDS ORDERED: diphenhydrAMINE 50 MG/ML 1 ML VIAL IVP PRN ×2 (11:03)
[2020-10-09] MEDS ORDERED: LANOLIN CREAM 5 GM TUBE TOPICAL PRN (11:03)
[2020-10-09] MEDS ORDERED: diphenhydrAMINE 25 MG CAP PO PRN (11:03)
[2020-10-09] MEDS: LACTATED RINGERS 1,000 ML IV SCH (11:09)
[2020-10-09] MEDS ORDERED: OXYTOCIN 30 UNITS/500 ML NS 30 UNIT in SALINE 1 500ML.BAG IV SCH (11:15)
--- NOTE | 2020-10-09 13:16 | P.PROBDLV ---
Vaginal Delivery Note - . Vaginal Delivery Note: The patient progressed to complete dilatation after artificial rupture of membranes and epidural anesthesia. She pushed for a short time and then 's head came to a crown. Will one further push, infant's head delivered across the perineum followed by the anterior shoulder. was placed on mother's abdomen. Cord was clamped and cut and was evaluated by nursing staff. A viable male infant was noted with scores of 9 at 1 minute and 9 at 5 minutes and infant weight of 6#7oz. Placenta delivered shortly thereafter, intact, with a 3 vessel cord. Uterus contracted well after oxytocin was given and uterine massage was carried out. Inspection of the perineum revealed a small abrasion periurethrally, but no active bleeding. Estimated blood loss was 100 cc. Both mother and are in stable condition. Delivery time was 9:21 am.
[2020-10-09] MEDS: IBUPROFEN 600 MG TAB PO PRN ×2 (17:21→23:14)
[2020-10-09] MEDS: SENNOSIDES-DOCUSATE SODIUM 1 EACH TAB PO SCH (19:33)
[2020-10-09] MEDS: ACETAMINOPHEN TAB 325 MG TAB PO PRN (19:35)
[2020-10-09] MEDS ORDERED: CALCIUM CARBONATE 500 MG CHEWABLE PO PRN (22:09)
[2020-10-10] MEDS: IBUPROFEN 600 MG TAB PO PRN ×3 (05:46→23:15)
[2020-10-10 07:19] LABS: HCT 35.7 % (34.0-46.0); HGB 12.1 gm/dL (11.4-16.0); MCH 30.5 pg (25.0-35.0); MCHC 33.8 g/dL (31.0-37.0); MCV 90.2 fL (80.0-100.0); Mean Platelet Volume 8.1; Platelet Count 277 k/uL (150-450); RBC 3.95 m/uL (3.80-5.40); RDW 12.6 % (11.5-15.5); WBC 12.1 k/uL (3.8-10.6)
[2020-10-10] MEDS: SENNOSIDES-DOCUSATE SODIUM 1 EACH TAB PO SCH ×2 (07:42→19:47)
[2020-10-10 07:48] VITALS: RESP 16
[2020-10-10 07:58] LABS: Eosinophils # (M) 0.12 k/uL (0-0.7); Lymphocytes # (M) 3.39 k/uL (1.0-4.8); Monocytes # (M) 0.73 k/uL (0-1.0); Neutrophils # (M) 7.87 k/uL (1.3-7.7); Neutrophils % (M) 65 %; Nucleated Red Blood Cells 0 /100 WBC (0-0); Total Cells Counted 100
--- NOTE | 2020-10-10 08:56 | P.DS ---
Providers Date of admission: 10/09/20 05:49 Expected date of discharge: 10/10/20 Attending physician: Jovani Wall Primary care physician: Stated None Hospital Course: This is a 25-year-old female 3 para 1 at 39-0/7 weeks who presented in active labor. She delivered vaginally a viable male infant on 10/09/2020 with scores of 9 at 1 minute and 9 at 5 minutes and infant weight of 6 lbs. 7 oz. Her course has been uncomplicated. Lochia is decreasing. She is bottle feeding. Vital signs are stable. Abdomen is soft with fundus firm and nontender. Extremities show negative Homans. Impression is status post vaginal delivery day #1. Plan is to discharge home today. Routine instructions are given. She is advised follow-up with Dr. Wall. She is advised to call the office if she has any further questions or concerns prior to her appointment time. She will be given a prescription for ibuprofen. Procedures: Spontaneous vaginal delivery of a viable male infant on 10/09/2020 Patient Condition at Discharge: Stable Plan - Discharge Summary New Discharge Prescriptions: New Ibuprofen [Motrin] 600 mg PO Q6HR PRN #60 tab PRN Reason: Mild Pain Or Fever >= 100.5 Continue Sur-Wcfn-Jwcnc Acid [-U Capsule (formulary)] 1 cap PO DAILY Discharge Medication List Ryt-Yrbs-Tbzli Acid [-U Capsule (formulary)] 1 cap PO DAILY 10/26/18 [History] Ibuprofen [Motrin] 600 mg PO Q6HR PRN #60 tab 10/10/20 [Rx] Follow up Appointment(s)/Referral(s): Jovani Wall DO [Doctor of Osteopathic Medicine] - 6 Weeks Activity/Diet/Wound Care/Special Instructions: Instructions 1. Do not begin any exercise program for 3 weeks. 2. Do not resume sexual relations for 3 weeks or longer if uncomfortable. 3. You may take tub baths or showers at any time. 4. You may use tampons if desired after 3 weeks. 5. Keep the area of episiotomy (stitches) clean and dry. 6. If you are not nursing, wear a good fitting, supportive bra during the day and limit fluid intake for at least 1 week to prevent breast engorgement. 7. Call the office, [phone], within the next week to make appointment for your 6 week checkup if it has not already been made. 8. Report any of the following occurrences to the doctor promptly: a. Heavy, excessive bleeding b. Chills, fever c. Burning or frequency of urination d. Pain or redness and breasts if nursing e. Increasing pain or swelling in episiotomy (stitches). In addition to the above instructions, the following additional should be followed: 1. No heavy lifting or straining (exercising) until after 6 week checkup. 2. Keep abdominal incision clean and dry: You may wear a dressing if more comfortable. 3. Make office appointment for 10 days after going home or as instructed by her doctor. Discharge Disposition: HOME SELF-CARE
[2020-10-10] MEDS: LACTATED RINGERS 1,000 ML IV SCH (13:25)
[2020-10-10] MEDS: ACETAMINOPHEN TAB 325 MG TAB PO PRN (19:49)
[2020-10-11] MEDS: IBUPROFEN 600 MG TAB PO PRN ×2 (08:25→16:07)
[2020-10-11] MEDS: SENNOSIDES-DOCUSATE SODIUM 1 EACH TAB PO SCH (08:25)
[2020-10-11] MEDS: ACETAMINOPHEN TAB 325 MG TAB PO PRN (12:49)
[2020-10-11 15:27] VITALS: BP 105/65; PULSE 80; TEMP 98.2
== END 2020-10-11 18:15 | disposition home or self-care (01) | DRG 807 ==
LOC: FBPOP 05:30 → 4FBP 05:49
PROVIDERS: ADMIT Obstetrics & Gynecology; ATTEND Obstetrics & Gynecology
PROC: 10E0XZZ Delivery of Products of Conception, External Approach (ICD-10-PCS; principal; 2020-10-09)
DX: O71.82 Other specified trauma to perineum and vulva (principal); Z37.0 Single live birth; J45.909 Unspecified asthma, uncomplicated; O99.52 Diseases of the respiratory system complicating childbirth; Z3A.39 39 weeks gestation of pregnancy; Z79.899 Other long term (current) drug therapy; Z86.59 Personal history of other mental and behavioral disorders; Z87.891 Personal history of nicotine dependence; Z82.49 Family history of ischemic heart disease and other diseases of the circulatory system
CPT/HCPCS: 59025; 84112; 85025; 86850; 86900; 86901; 99213

== ENCOUNTER 2022-01-05 13:52 | Emergency (ER) | payer OTHER ==
[2022-01-05 14:06] VITALS: BP 110/75; PULSE 92; RESP 18; TEMP 98.7
[2022-01-05] MEDS ORDERED: IBUPROFEN 600 MG STARTER PACK 4 TAB BTL PO STA (15:24)
[2022-01-05] MEDS ORDERED: GELATIN SPONGE,ABSORB (SMALL) 1 EACH SPONGE TOPICAL STA (15:24)
--- NOTE | 2022-01-05 15:26 | ED ---
Wound/Laceration HPI - General Chief Complaint: Wound/Laceration Stated Complaint: Lt Thumb Laceration Time Seen by Provider: 01/05/22 15:18 Source: patient Mode of arrival: ambulatory Limitations: no limitations - History of Present Illness Initial Comments: 26-year-old female patient presents to the emergency department today for evaluation of injury to the left thumb. States she was cutting branches with garden yonatan when she actually got her thumb and cut the tip off. States that injury occurred approximately 4 hours ago. She did cleanse the area apply antibacterial ointment. States she believes her tetanus vaccine is up-to-date. Denies any other injuries. - Related Data Home Medications Medication Instructions Recorded Confirmed Ukt-Wglb-Ypgcu Acid 1 cap PO DAILY 10/26/18 10/09/20 [-U Capsule (formulary)] Previous Rx's Medication Instructions Recorded Ibuprofen [Motrin] 600 mg PO Q6HR PRN #60 tab 10/10/20 Ibuprofen [Motrin] 600 mg PO Q8HR PRN #30 tab 01/05/22 Allergies Allergy/AdvReac Type Severity Reaction Status Date / Time No Known Allergies Allergy Verified 10/09/20 05:40 Review of Systems ROS Statement: Those systems with pertinent positive or pertinent negative responses have been documented in the HPI. ROS Other: All systems not noted in ROS Statement are negative. Past Medical History Past Medical History: Asthma Additional Past Medical History / Comment(s): not using any inhalers History of Any Multi-Drug Resistant Organisms: None Reported Past Surgical History: Hernia Repair Additional Past Surgical History / Comment(s): Ectopic , Past Anesthesia/Blood Transfusion Reactions: No Reported Reaction Past Psychological History: Anxiety, Depression Smoking Status: Vaper Past Alcohol Use History: None Reported Past Drug Use History: Marijuana - Past Family History Father Family Medical History: Hypertension General Exam Limitations: no limitations General appearance: alert, in no apparent distress, other (This is a well- developed, well-nourished adult female in no acute distress.) Respiratory exam: Present: normal lung sounds bilaterally. Absent: respiratory distress, wheezes, rales, rhonchi, stridor Cardiovascular Exam: Present: regular rate, normal rhythm, normal heart sounds. Absent: systolic murmur, diastolic murmur, rubs, gallop, clicks Extremities exam: Present: full ROM, normal capillary refill, other (Skin avulsion noted to distal tip of left thumb involving the nail. No bony involvement. Full ROM intact. Radial pulse 2+. Cap refill <3 seconds.). Absent: normal inspection, tenderness, pedal edema, joint swelling, calf tenderness Neurological exam: Present: alert, oriented X3, CN II-XII intact Psychiatric exam: Present: normal affect, normal mood Skin exam: Present: warm, dry, intact, normal color. Absent: rash Course Vital Signs 01/05/22 14:04 Temperature 98.7 F Pulse Rate 92 Respiratory 18 Rate Blood Pressure 110/75 O2 Sat by Pulse 98 Oximetry Medical Decision Making - Medical Decision Making 26-year-old female patient presented to the emergency department today for evaluation of injury to the left thumb. Physical examination did reveal skin avulsion to the distal tip of the left thumb involving the very distal tip of the nail. Wound was cleansed, Gelfoam applied, tube gauze applied. Did discuss wound care and signs or symptoms of infection. She is instructed to follow-up with the primary care physician for recheck in 1-2 days. Return parameters were discussed in detail. She verbalizes understanding and agrees with this plan. My attending is Dr. Carolina. Disposition Clinical Impression: Avulsion of skin of left thumb Disposition: HOME SELF-CARE Condition: Good Instructions (If sedation given, give patient instructions): Skin Avulsion (ED) Additional Instructions: Leave gelfoam dressing in place for next three days. Soak in water to remove the dressing. Keep covered. This will time at least two weeks to heal. Monitor for signs or symptoms of infection including but not limited to redness, swelling, drainage of pus, fever, or chills. Take Tylenol Motrin for pain control. Follow-up with the primary care physician for recheck in 1-2 days. Return to emergency department for any new, worsening, or concerning symptoms. Prescriptions: Ibuprofen [Motrin] 600 mg PO Q8HR PRN #30 tab PRN Reason: Pain Is patient prescribed a controlled substance at d/c from ED?: No Referrals: None,Stated [Primary Care Provider] - 1-2 days Time of Disposition: 15:26
== END 2022-01-05 15:56 | disposition home or self-care (01) ==
LOC: EC 13:52
DX: S61.002A Unspecified open wound of left thumb without damage to nail, initial encounter (principal); J45.909 Unspecified asthma, uncomplicated; F17.209 Nicotine dependence, unspecified, with unspecified nicotine-induced disorders; W29.3XXA Contact with powered garden and outdoor hand tools and machinery, initial encounter

== ENCOUNTER 2023-12-11 23:48 | Outpatient (CLI) | payer OTHER ==
[2023-12-12] MEDS: ONDANSETRON 4 MG/2 ML VIAL IVP STA (00:30)
[2023-12-12] MEDS: LACTATED RINGERS 1,000 ML IV ONE (00:33)
[2023-12-12 00:57] LABS: Appearance,Urine Clear (Clear); Bilirubin,Urine Negative (Negative); Blood,Urine Negative (Negative); Color,Urine Yellow; Glucose,Urine (UA) Negative (Negative); Ketones,Urine Trace (Negative); Leukocyte Esterase,Urine Negative (Negative); Mucus,Urine Few /hpf; Nitrite,Urine Negative (Negative); Protein,Urine 1+ (Negative); RBC,Urine 1 /hpf (0-5); Specific Gravity,Urine 1.031 (1.001-1.035); Squamous Epithelial Cell,Urine 2 /hpf (0-4); Urobilinogen,Urine <2.0 mg/dL (<2.0); WBC,Urine 2 /hpf (0-5)
[2023-12-12 02:03] VITALS: BP 114/70; PULSE 109; RESP 16; TEMP 97.8
--- NOTE | 2023-12-15 07:40 | P.MSEPDOC ---
Presenting Problems - Arrival Data Date of Arrival on Unit: 12/11/23 Time of Arrival on Unit: 23:48 Mode of Transport: Wheelchair - Complaint OB-Reason for Admission/Chief Complaint: Acute Nausea/Vomiting Comment: Patient presents to triage with nausea/vomiting, and weakness. Medical History - Information : 3 Para: 2 Term: 2 : 0 Abortions: Spontaneous or Elective: 0 Number of Living Children: 2 - Gestational Age Gestational Age by LENO (wks/days): 36 Weeks and 0 Days Review of Systems - Review of Systems Constitutional: No problems Breast: No problems ENT: No problems Cardiovascular: No problems Respiratory: No problems Gastrointestinal: No problems Genitourinary: No problems Musculoskeletal: No problems Neurological: No problems Skin: No problems Vital Signs - Temperature Temperature: 97.8 F Temperature Source: Oral - Pulse Pulse Oximetery Pulse Rate: 109 Pulse Assessment Method: Pulse Oximetry - Respirations Respiratory Rate: 16 Oxygen Delivery Method: Room Air O2 Sat by Pulse Oximetry: 98 - Blood Pressure Right Arm Blood Pressure: 114/70 Blood Pressure Mean: 84 Blood Pressure Source: Automatic Cuff Physician Notification - Physician Notified Physician Notified Date: 12/12/23 Physician Notified Time: 01:07 Physician: Marisela Contreras Order Received: Yes (discharge) Maternal Triage Index - Maternal Triage Index Presenting for scheduled procedure w/no complaint: No - Stat/Priority 1 Stat Priority 1: No - Urgent/Priority 2 Urgent Priority 2: No - Prompt/Priority 3 Prompt Priority 3: No - Non-Urgent/Priority 4 Non-Urgent Priority 4: Yes Criteria Met for Priority 4: Patient presents to triage with nausea/vomiting, and weakness. Disposition - Disposition OB Disposition: Discharge to home Discharge Date: 12/12/23 Discharge Time: 01:26 I agree with the RN Medical Screening Exam: Yes Case reviewed; plan agreed upon as documented in EMR&OBIX.: Yes Diagnosis: VOMITING OF , UNSPECIFIED
== END 2023-12-12 01:26 ==
LOC: FBPOP 23:48
PROVIDERS: ATTEND Obstetrics & Gynecology
DX: O21.9 Vomiting of pregnancy, unspecified (principal); O26.893 Other specified pregnancy related conditions, third trimester; R53.1 Weakness; Z3A.36 36 weeks gestation of pregnancy; Z87.891 Personal history of nicotine dependence
CPT/HCPCS: 59025; 96361; 36415; 81001; G0463; J2405; 96374; 99214

== ENCOUNTER 2024-01-21 21:09 | Emergency (ER) | payer OTHER ==
[2024-01-21 21:50] VITALS: BP 109/70; PULSE 78; RESP 18; TEMP 98.2
--- NOTE | 2024-01-21 22:07 | ED ---
Skin/Abscess/FB HPI - General Chief complaint: Skin/Abscess/Foreign Body Stated complaint: Recent , infection in incision Time Seen by Provider: 01/21/24 22:05 Source: patient, RN notes reviewed Limitations: no limitations - History of Present Illness Initial comments: 28-year-old female presenting with drainage from her incision. States today she noticed there was a white/yellow drainage coming from the incision in her left lower quadrant of her abdomen. She had a 3 weeks ago and as had no issues until today. Denies new tenderness. Denies redness or fevers/chills. Denies nausea or vomiting. - Related Data Home Medications Medication Instructions Recorded Confirmed Jyc-Douv-Mtevb Acid 1 cap PO DAILY 10/26/18 01/01/24 [-U Capsule (formulary)] Previous Rx's Medication Instructions Recorded Cephalexin [Keflex] 500 mg PO Q6HR 7 Days #28 cap 01/21/24 Allergies Allergy/AdvReac Type Severity Reaction Status Date / Time No Known Allergies Allergy Verified 01/21/24 21:50 Review of Systems ROS Statement: Those systems with pertinent positive or pertinent negative responses have been documented in the HPI. ROS Other: All systems not noted in ROS Statement are negative. Past Medical History Past Medical History: Asthma Additional Past Medical History / Comment(s): not using any inhalers History of Any Multi-Drug Resistant Organisms: None Reported Past Surgical History: Hernia Repair Additional Past Surgical History / Comment(s): Ectopic , Past Anesthesia/Blood Transfusion Reactions: No Reported Reaction Past Psychological History: Anxiety, Depression Smoking Status: Never smoker Past Alcohol Use History: None Reported Past Drug Use History: None Reported - Past Family History Father Family Medical History: Hypertension General Exam - General Exam Comments Initial Comments: Visual Physical Exam Vital signs reviewed General: Well-appearing, nontoxic, no acute distress. Head: Normocephalic, atraumatic Eyes: PERRLA, EOMI ENT: Airway patent Chest: Nonlabored breathing Skin: No visual rash, normal skin tone Neuro: Alert and oriented 3 Musculoskeletal: No gross abnormalities Limitations: no limitations General appearance: alert, in no apparent distress Head exam: Present: atraumatic, normocephalic, normal inspection Eye exam: Present: normal appearance, PERRL, EOMI. Absent: scleral icterus, conjunctival injection, periorbital swelling ENT exam: Present: normal exam, mucous membranes moist Respiratory exam: Present: normal lung sounds bilaterally. Absent: respiratory distress, wheezes, rales, rhonchi, stridor Cardiovascular Exam: Present: regular rate, normal rhythm, normal heart sounds. Absent: systolic murmur, diastolic murmur, rubs, gallop, clicks GI/Abdominal exam: Present: soft, normal bowel sounds, other (There is minimal amount of yellow drainage coming from incision on left lower abdomen. Incision is otherwise intact with no surrounding erythema or tenderness.). Absent: distended, tenderness, guarding, rebound, rigid Extremities exam: Present: normal inspection, full ROM, normal capillary refill. Absent: tenderness, pedal edema, joint swelling, calf tenderness Neurological exam: Present: alert, oriented X3, CN II-XII intact Psychiatric exam: Present: normal affect, normal mood Skin exam: Present: warm, dry, intact, normal color Course Vital Signs 01/21/24 21:47 Temperature 98.2 F Pulse Rate 78 Respiratory 18 Rate Blood Pressure 109/70 O2 Sat by Pulse 97 Oximetry Medical Decision Making - Medical Decision Making I completed the quick note portion of this chart signed Ashley Stoddard PA-C Was pt. sent in by a medical professional or institution ([facility], [facility], urgent care, hospital, or intermediate...) When possible be specific @ -No Did you speak to anyone other than the patient for history (EMS, parent, family, police, friend...)? What history was obtained from this source @ -No Did you review nursing and triage notes (agree or disagree)? Why? @ -I reviewed and agree with nursing and triage notes Were old charts reviewed (outside hosp., previous admission, EMS record, old EKG, old radiological studies, urgent care reports/EKG's, intermediate records)? Report findings @ -No old charts were reviewed Differential Diagnosis (chest pain, altered mental status, abdominal pain women, abdominal pain men, vaginal bleeding, weakness, fever, dyspnea, syncope, h eadache, dizziness, GI bleed, back pain, seizure, CVA, palpatations, mental health, musculoskeletal)? @ -Cellulitis, abscess, incisional dehiscence EKG interpreted by me (3pts min.). @ -None X-rays interpreted by me (1pt min.). @ -None done CT interpreted by me (1pt min.). @ -None done U/S interpreted by me (1pt. min.). @ -None done What testing was considered but not performed or refused? (CT, X-rays, U/S, labs)? Why? @ -Labs/CT of abdomen not performed at this time due to patient is afebrile and infection appears minimal with no red flag symptoms What meds were considered but not given or refused? Why? @ -None Did you discuss the management of the patient with other professionals (professionals i.e. DrRamon, PA, [facility], lab, RT, psych nurse, social group worker, cigar bander, teacher, armoured corps officer, case management manager)? Give summary @ -No Was smoking cessation discussed for >3mins.? @ -No Was critical care preformed (if so, how long)? @ -No Were there social determinants of health that impacted care today? How? (Homelessness, low income, unemployed, alcoholism, drug addiction, transportation, low edu. Level, literacy, decrease access to med. care, longterm, rehab)? @ -No Was there de-escalation of care discussed even if they declined (Discuss DNR or withdrawal of care, Hospice)? DNR status @ -No What co-morbidities impacted this encounter? (DM, HTN, Smoking, COPD, CAD, Cancer, CVA, ARF, Chemo, Hep., AIDS, mental health diagnosis, sleep apnea, morbid obesity)? @ -None Was patient admitted / discharged? Hospital course, mention meds given and route, prescriptions, significant lab abnormalities, going to OR and other pertinent info. @ -Patient is discharged. Patient was seen and evaluated for discharge from C- section incision. Patient is afebrile and vitals are within normal limits. Physical examination reveals minimal yellow discharge from incision with no erythema or tenderness to palpation of abdomen. Discussed with patient diagnosis of cellulitis of incision. Given first dose of Keflex in ER. Prescribed Keflex to pharmacy. Advised patient to follow-up with her OB tomorrow. Strict return/alarm symptoms discussed with patient in detail such as fever, vomiting, abdominal pain, or worsening of discharge and patient shows understanding and agrees to plan. Case discussed with my attending Dr. Alvarez. Patient discharged in stable condition. Undiagnosed new problem with uncertain prognosis? @ -No Drug Therapy requiring intensive monitoring for toxicity (Heparin, Nitro, Insulin, Cardizem)? @ -No Were any procedures done? @ -No Diagnosis/symptom? @ -Cellulitis of incision site Acute, or Chronic, or Acute on Chronic? @ -Acute Uncomplicated (without systemic symptoms) or Complicated (systemic symptoms)? @ -Uncomplicated Side effects of treatment? @ -No Exacerbation, Progression, or Severe Exacerbation? @ -No Poses a threat to life or bodily function? How? (Chest pain, [place], [place], pneumonia, PE, COPD, DKA, ARF, appy, cholecystitis, CVA, Diverticulitis, Homicidal, Rider icidal, threat to staff... and all critical care pts) @ -Low likelihood Disposition Clinical Impression: Infected incision Disposition: HOME SELF-CARE Condition: Stable Instructions (If sedation given, give patient instructions): Acute Wounds (ED) Additional Instructions: Please follow-up with OB tomorrow. Please return to the Emergency Department if you begin to experience fever, vomiting, worsening redness/tenderness at incision site, symptoms worsen or any other concerns. Prescriptions: Cephalexin [Keflex] 500 mg PO Q6HR 7 Days #28 cap Is patient prescribed a controlled substance at d/c from ED?: No Referrals: None,Stated [Primary Care Provider] - 1-2 days Aravind Robertson MD [STAFF PHYSICIAN] - 1-2 days Time of Disposition: 22:27
[2024-01-21] MEDS: CEPHALEXIN 500 MG CAP PO STA (22:53)
== END 2024-01-21 22:58 | disposition home or self-care (01) ==
LOC: EC 21:09
DX: O86.00 Infection of obstetric surgical wound, unspecified (principal)
CPT/HCPCS: 99282

== ENCOUNTER 2024-03-20 12:55 | Emergency (ER) | payer OTHER | END 2024-03-20 14:05 | disposition home or self-care (01) | LOC: EC 12:55 | DX: A08.4 Viral intestinal infection, unspecified (principal) | CPT/HCPCS: 99283 ==